=== PATIENT | male | born 1945 | race Caucasian/White ===

== ENCOUNTER 2017-08-28 22:09 | Emergency (ER) | payer OTHER, MEDICARE ==
[2017-08-28 23:01] LABS: #Eosinphils 0.9 thou/uL (0.0-0.7); #Monocytes 0.4 thou/uL (0.11-0.59); #Neutrophils 3.4 thou/uL (1.40-6.50); %Basophils 0.6 % (0.0-1.0); %Eosinophils 13.8 % (0.0-10.0); %Lymphocytes 28.9 % (21.0-51.0); %Monocytes 6.3 % (0.0-10.0); %Neutrophils 50.5 % (42.0-75.0); Hemoglobin 12.7 g/dL (14.0-18.0); Mean Corpuscular HGB CONC 34.4 g/dL (32.0-36.0); Mean Corpuscular Hemoglobin 30.6 pg (27.0-31.0); Mean Platelet Volume 6.2 fL (7.4-10.4); Platelet Count 205 thou/uL (130-400); RBC Distribution Width 12.8 % (11.5-14.5); Red Blood Cell (RBC) Count 4.16 mill/uL (4.70-6.10); White Blood Cell (WBC) Count 6.8 thou/uL (4.8-10.8)
[2017-08-28 23:29] LABS: CKMB 4.5 ng/mL (0-6.6); Troponin I 0.102 ng/mL (< 0.028)
[2017-08-29] MEDS ORDERED: Enoxaparin Sodium 100 MG/ML SYRINGE ONE (00:29)
[2017-08-29 02:20] LABS: Anion Gap 14 mmol/L (10-20); BUN (Urea Nitrogen) 20 mg/dL (8.4-25.7); Calc. Creatinine Clearance 0 mL/min (70-130); Carbon Dioxide 23 mmol/L (23-31); Chloride 109 mmol/L (98-107); Estimated GFR-MDRD 67; Glucose 317 mg/dL (80-115); Potassium 4.7 mmol/L (3.5-5.1); Sodium 141 mmol/L (136-145)
--- NOTE | 2017-08-29 08:59 | RAD ---
AP VIEW CHEST: 08/28/17 HISTORY: Chest pain. AP view chest obtained on 08/28/17. Comparison made to previous exam from 07/11/15. AP view chest demonstrates the lungs to be well aerated. No evidence of active intrathoracic disease seen. No evidence of effusions, pneumonia or pneumothorax seen. IMPRESSION: Unremarkable AP view chest. POS: [facility]
== END 2017-08-29 03:44 ==
LOC: ERS 22:09
DX: I21.4 Non-ST elevation (NSTEMI) myocardial infarction (principal); E11.9 Type 2 diabetes mellitus without complications; E78.5 Hyperlipidemia, unspecified; Z79.82 Long term (current) use of aspirin; Z79.899 Other long term (current) drug therapy; Z79.84 Long term (current) use of oral hypoglycemic drugs
CPT/HCPCS: 36415; 71045; 80048; 82550; 82553; 84484; 85025; 85379; 93005; 96372; J1650

== ENCOUNTER 2018-02-02 13:54 | Emergency (ER) | payer OTHER, MEDICARE ==
--- NOTE | 2018-02-02 14:50 | CT ---
CT CERVICAL SPINE NONCONTRAST: HISTORY: 72-year-old male status post acute cervical trauma. FINDINGS: There are no jumped or perched facets. There is no evidence of acute fracture. The vertebral body h eights are maintained. There is no prevertebral soft tissue swelling. IMPRESSION: No evidence of acute fracture or acute traumatic subluxation. reyna POS: [facility]
--- NOTE | 2018-02-02 15:37 | RAD ---
RIGHT SHOULDER THREE VIEWS: History: Injury. Right shoulder pain. FINDINGS/IMPRESSION: There are degenerative changes in the acromioclavicular joint. No acute fracture or dislocation is id entified. POS: OFF
--- NOTE | 2018-02-02 15:38 | CT ---
NONCONTRAST CT HEAD: Date: 02-02-18 History: Syncope. Injury to head after hitting metal bar in truck. Reported LOC. Comparison: None available. FINDINGS: There is no evidence of a hemorrhage, acute infarction, mass effect or midline shift. Ventricular sys tem is normal in size, shape, and position. There is mild cerebral volume loss. There are symmetric c alcifications in the basal ganglia bilaterally. No calvarial fracture is seen. Visualized paranasal sinuses and mastoid air cells are clear. IMPRESSION: No acute intracranial abnormalities demonstrated. POS: [facility]
== END 2018-02-02 15:22 | disposition home or self-care (01) ==
LOC: ERS 13:54
DX: S06.0X9A Concussion with loss of consciousness of unspecified duration, initial encounter (principal); I25.2 Old myocardial infarction; E11.9 Type 2 diabetes mellitus without complications; E78.5 Hyperlipidemia, unspecified; Z79.82 Long term (current) use of aspirin; Z79.84 Long term (current) use of oral hypoglycemic drugs; Z79.899 Other long term (current) drug therapy
CPT/HCPCS: 70450; 72125; 93005

== ENCOUNTER 2019-01-06 15:20 | Emergency (ER) | payer OTHER ==
[2019-01-06] MEDS ORDERED: Tranexamic Acid 1,000 MG/10 ML VIAL ONE (15:43)
== END 2019-01-06 15:50 | disposition home or self-care (01) ==
LOC: ERS 15:20
DX: K91.840 Postprocedural hemorrhage of a digestive system organ or structure following a digestive system procedure (principal); K08.89 Other specified disorders of teeth and supporting structures; Z79.899 Other long term (current) drug therapy; Z79.82 Long term (current) use of aspirin
CPT/HCPCS: 99283

== ENCOUNTER 2019-03-02 09:03 | Inpatient (IN) | payer OTHER ==
[2019-03-02] MEDS ORDERED: Furosemide 40 MG/4 ML VIAL ONE (09:11)
[2019-03-02 09:18] LABS: Analyzer IN Cardio ER; Base Excess (BEa) -5.6 mEq/L (-2.0 to +3.0); CO2 Tension 39.4 mmHg (35.0-45.0); Calcium, Ionized 1.19 mmol/L (1.12-1.30); Carboxyhemoglobin (COHb) 0.1 gm% (0.0-3.0); Hemoglobin (Hb) 12.9 g/dL (14.0-18.0); O2 Tension (PaO2) 94.2 mmHg (> 70.0); Potassium - ABG Lab 4.53 mmol/L (3.70-5.30); Puncture Site RRA; pH, Arterial 7.32 (7.35-7.45)
--- NOTE | 2019-03-02 09:20 | RAD ---
RADIOGRAPH CHEST 1 VIEW: DATE: 03/02/2019 TIME: 9:13 AM HISTORY: 74-year-old male with dyspnea COMPARISON: 08/28/2017 FINDINGS: No cardiomegaly or pneumothorax. New finding of diffuse mild interstitial prominence, plus new region of slight confluence at right mi dlung zone and at right medial base. New finding of minimal blunting of bilateral lateral costophrenic angles which could represent small pleural effusions. IMPRESSION: New mild interstitial densities which could represent noncardiogenic pulmonary interstitial edema, an d questionable new small pleural effusions.
[2019-03-02 09:35] LABS: #Eosinphils 0.4 thou/uL (0.0-0.7); #Monocytes 0.2 thou/uL (0.11-0.59); #Neutrophils 9.7 thou/uL (1.40-6.50); %Basophils 0.1 % (0.0-1.0); %Eosinophils 3.2 % (0.0-10.0); %Lymphocytes 8.6 % (21.0-51.0); %Monocytes 1.6 % (0.0-10.0); %Neutrophils 86.6 % (42.0-75.0); Hemoglobin 12.5 g/dL (14.0-18.0); Mean Corpuscular Volume 90.6 fL (78.0-98.0); Mean Platelet Volume 7.8 fL (7.4-10.4); Platelet Count 281 thou/uL (130-400); Red Blood Cell (RBC) Count 4.18 mill/uL (4.70-6.10); White Blood Cell (WBC) Count 11.2 thou/uL (4.8-10.8)
[2019-03-02 09:56] LABS: ALT (SGPT) 8 U/L (8-55); AST (SGOT) 17 U/L (5-34); Albumin 4.2 g/dL (3.4-4.8); Alkaline Phosphatase 105 U/L (40-110); Anion Gap 15 mmol/L (10-20); BUN (Urea Nitrogen) 24 mg/dL (8.4-25.7); Bilirubin, Total 0.5 mg/dL (0.2-1.2); CK (CPK) 53 U/L (30-200); Calc. Creatinine Clearance 0 mL/min (70-130); Carbon Dioxide 20 mmol/L (23-31); Chloride 107 mmol/L (98-107); Estimated GFR-MDRD 44; Globulin 3.5 g/dL (2.4-3.5); Glucose 228 mg/dL (83-110); Lipase 46 U/L (8-78); Protein, Total 7.7 g/dL (5.8-8.1); Sodium 137 mmol/L (136-145)
[2019-03-02 10:26] LABS: Bilirubin Negative (Negative); Blood, Urine Negative (Negative); Clarity Clear (Clear); Glucose, Urine (Dipstick) Normal (Negative); Leukocyte Negative Leu/uL (Negative); Nitrite Negative (Negative); Protein, Urine (Dipstick) Negative (Neg-Trace); Urobilinogen Normal mg/dL (Less than 2)
[2019-03-02 12:46] LABS: Troponin I 0.014 ng/mL (< 0.028)
[2019-03-02] MEDS ORDERED: Sodium Chloride 0.65% Nasal 44 ML BOT EA NARE PRN (13:46)
[2019-03-02] MEDS ORDERED: Loratadine 10 MG TAB PO PRN (13:46)
[2019-03-02] MEDS ORDERED: Cepastat Lozenges 1 LOZ PO PRN (13:46)
[2019-03-02] MEDS ORDERED: Dextrose 50% Abboject 50 ML SYRINGE SLOW IVP PRN (13:46)
[2019-03-02] MEDS ORDERED: hydrALAZINE 20 MG/ML VIAL SLOW IVP PRN (13:46)
[2019-03-02] MEDS ORDERED: Zolpidem Tartrate 5 MG TAB PO PRN (13:46)
[2019-03-02] MEDS ORDERED: Dextrose 5% in Water 1,000 ML IV PRN (13:46)
[2019-03-02] MEDS ORDERED: Loperamide HCl 2 MG CAP PO PRN (13:46)
[2019-03-02] MEDS ORDERED: Acetaminophen 325 MG TAB PO PRN (13:46)
[2019-03-02] MEDS ORDERED: Diabetic Tussin 200 MG/10 ML UDCUP PO PRN (13:46)
[2019-03-02] MEDS ORDERED: Artificial Tears 18 DROP/0.9 ML EA EYE PRN (13:46)
[2019-03-02] MEDS ORDERED: Bisacodyl 10 MG SUPP PR PRN (13:46)
[2019-03-02] MEDS ORDERED: Ondansetron PF 4 MG/2 ML Vial IVP PRN (13:46)
[2019-03-02] MEDS ORDERED: Ondansetron ODT 4 MG TAB PO PRN (13:46)
[2019-03-02] MEDS ORDERED: HYDROcodone/Acetaminophen 5/325 mg Tablet PO PRN (13:46)
[2019-03-02] MEDS ORDERED: Calcium Carbonate 500 MG ChewTAB PO PRN (13:46)
[2019-03-02 13:59] VITALS: BMI 32.0
--- NOTE | 2019-03-02 14:15 | HP ---
PRIMARY CARE PHYSICIAN: [facility]. REASON FOR ADMISSION: Acute shortness of breath. HISTORY OF PRESENT ILLNESS: A 74-year-old male who has underlying history of hypertension, diabetes type 2, dyslipidemia, coronary artery disease as well as morbid obesity, and possible COPD/asthma, who had cardiac catheterization performed at [facility] by Dr. Coleman. The patient has history of contrast allergy and he was prepared before cardiac catheterization for contrast allergy. The patient had cardiac catheterization and he required two stents placement. Procedure was done through a right groin approach. After cardiac catheterization, in recovery, patient was having difficulty breathing. The patient was given treatment with Benadryl, steroid and epinephrine, but his condition did not improve and that is why paramedics was called and the patient was kept on BiPAP and the patient was brought to emergency room for evaluation. After BiPAP treatment, the patient's condition significantly improved and in the emergency room, we tried to discontinue BiPAP and the patient was continued to maintain saturation and he was feeling much better. In the emergency room, chest x-ray showed bilateral interstitial infiltration, suspected for noncardiogenic pulmonary edema. His BNP is elevated. The patient also reports that he has underlying valve problem and before they consider any surgical intervention on valve, he will require cardiac catheterization and that is why he had procedure scheduled today. REVIEW OF SYSTEMS: CONSTITUTIONAL: Negative for weight loss or gain, ability to conduct usual activities. SKIN: Negative for rash, itching. EYES: Negative for double vision, pain. ENT/MOUTH: Negative for nose bleeding, neck stiffness, pain, tenderness. CARDIOVASCULAR: Negative for palpitations, dyspnea on exertion, orthopnea. RESPIRATORY: Negative for shortness of breath, wheezing, cough, hemoptysis, fever or night sweats. GASTROINTESTINAL: Negative for poor appetite, abdominal pain, heartburn, nausea, vomiting, constipation, or diarrhea. GENITOURINARY: Negative for urgency, frequency, dysuria, nocturia. MUSCULOSKELETAL: Negative for pain, swelling. NEUROLOGIC/PSYCHIATRIC: Negative for anxiety, depression. ALLERGY/IMMUNOLOGIC: Negative for skin rash, bleeding tendency. Please see my HPI for pertinent positives and negatives. All other review of systems reviewed and negative except as mentioned in HPI. EMERGENCY ROOM COURSE: The patient has received Lasix 40 mg IV one time dose. ALLERGY: Iodine contrast medium. CURRENT HOME MEDICATION: 1. Aspirin 81 mg daily. 2. Lipitor 80 mg p.o. at bedtime. 3. Metoprolol 50 mg twice daily. 4. Metformin 1000 mg twice daily. 5. Victoza 2-Michael subcu weekly. 6. NovoLog insulin as per sliding scale. 7. Lantus insulin as per variable dose. 8. Albuterol nebulization q.6 hourly. PAST MEDICAL HISTORY: Diabetes type 2, hypertension, aortic valve problem, coronary artery disease with history of total five stents, paroxysmal atrial fibrillation, hypertension, dyslipidemia, COPD/asthma, obstructive sleep apnea, morbid obesity. PAST SURGICAL HISTORY: Cardiac catheterization with several stent placement, bilateral eye surgery. PAST PSYCHIATRIC HISTORY: Reviewed and negative. SOCIAL HISTORY: The patient lives at home with family. No history of tobacco, alcohol, or illicit drug abuse. FAMILY HISTORY: No strong family history of premature coronary artery disease, stroke, or cancer. PHYSICAL EXAMINATION: VITAL SIGNS: On arrival, blood pressure 103/69, pulse 86, respiratory rate 23, temperature 98.7, saturation 99% on BiPAP, and after BiPAP off the patient was maintaining 98% saturation on 2 L nasal cannula. GENERAL: The patient is currently alert, awake, in no obvious acute distress. HEENT: Head; normocephalic, atraumatic. Eyes; pupils round, reactive to light. Extraocular muscle intact. ENT, oropharynx within normal limits. Moist mucous membranes. No oral lesion. No pharyngeal erythema. No exudate. NECK: Supple. Mild elevated JVD noted. No thyromegaly. No carotid bruit. LUNGS: Bilateral basal rales noted, few end-expiratory wheezing heard. No accessory muscles of respiration in use. CARDIAC: S1, S2 regular. Systolic murmur noted at aortic area. No gallop. No rub. ABDOMEN: Morbid obesity limiting examination. No peritoneal sign. Nontender, nondistended. EXTREMITIES: Bilateral lower extremity pitting edema noted. NEUROLOGIC: Nonfocal examination. LABORATORY DATA: Significant labs: EKG showing normal sinus rhythm, nonspecific ST-T changes. Chest x-ray showing bilateral interstitial infiltration consistent with noncardiogenic pulmonary edema. CBC: WBC 11.2, hemoglobin 12.5, platelet 281. ABGs: PH 7.32, CO2 of 39.4, PO2 of 94.2, bicarb 20.0. BMP: Sodium 137, potassium 5.0, chloride 107, carbon dioxide 20, BUN 24, creatinine 1.55, glucose 228, calcium 9.0. LFTs: AST 17, ALT 8, alkaline phosphatase 105, albumin 4.2, CK 53. Troponin I negative x2. BNP 240.8. Lipase 46. Urinalysis normal. ASSESSMENT AND PLAN: 1. Acute respiratory failure with hypoxia. 2. Acute bilateral interstitial edema suspected for noncardiogenic pulmonary edema versus acute congestive heart failure, likely systolic. 3. Acute on chronic systolic congestive heart failure exacerbation. 4. Coronary artery disease with a history of several stents and status post cardiac catheterization with two stent placement. 5. Hypertension, but currently low blood pressure. 6. Dyslipidemia. 7. Morbid obesity with possible sleep apnea. 8. Chronic obstructive pulmonary disease/asthma. 9. Diabetes type 2. 10. Chronic kidney disease, stage 3. PLAN: 1. Admission to telemetry floor (the patient has improvement with BiPAP in the emergency room, and subsequently, the patient was stabilized and plan was changed to admission to telemetry rather than IMCU). 2. Continue Lasix 40 mg IV b.i.d. 3. Cardiology consultation. 4. Oxygen to keep saturation above 92%. 5. DuoNeb q.6 hourly and p.r.n. basis. 6. Selected home medication will be reconciled including diabetes medication and diabetes hyperglycemia protocol. 7. Echocardiography will be obtained for assessing EF and other structural abnormality. 8. We will repeat labs tomorrow. 9. Deep venous thrombosis prophylaxis, Lovenox 40 mg subcu daily. 10. GI prophylaxis, Pepcid 20 mg p.o. b.i.d. CODE STATUS: The patient is full code. DISPOSITION PLAN: Based on clinical course, we are expecting the patient's stay in hospital more than 2 midnights. Plan of care discussed with the patient in detail. Job ID: [id number]
[2019-03-02] MEDS: Heparin 5,000 UNITS/ML VIAL SC SCH ×2 (14:23→21:10)
[2019-03-02] MEDS: Furosemide 40 MG/4 ML VIAL SLOW IVP SCH (15:32)
[2019-03-02 16:11] LABS: Troponin I 0.028 ng/mL (< 0.028)
[2019-03-02] MEDS: HumaLOG 300 UNITS/3 ML VIAL SC PRN ×2 (17:49→21:11)
--- NOTE | 2019-03-02 18:52 | CON ---
DATE OF CONSULTATION: 03/02/2019 INDICATION FOR CONSULTATION: A 74-year-old gentleman, who underwent cardiac catheterization this morning and after the procedure, developed what appeared to be acute congestive heart failure with decreasing O2 saturations and difficulty breathing. After IV Lasix and nonrebreathing mask, he still continued to have shortness of breath and O2 saturations were in the 80s. He was then transferred to [facility] for further evaluation. The cardiac catheterization was performed at the [facility]. He does have a history of a coronary artery disease. He underwent stent placement by me in the left anterior descending approximately 20 years ago. He then subsequently after that several years later underwent repeat stent placement with one or two stents to the LAD also. He did not have stent placement today. These were all old stents and they still remain patent at the cardiac catheterization today. The results of the cardiac catheterization today indicated that the stents were patent. The distal left anterior descending artery was about 50% stenosed, but it was a small vessel, but almost approached the apex of the left ventricle. The diagonal branch had plaque formation, was not flow limiting. The left circumflex for first obtuse marginal branch is less than 1 mm in diameter. The second obtuse marginal branch had a 70% proximal stenosis, but also did not appear to be limited in his flow. The right coronary artery was a large dominant vessel, which had some plaque formation, but the posterior descending artery was 75% stenosed. The posterior branch was unaffected and had good flow. His left ventricular systolic function was estimated at 35% to 40%. The left ventricle appeared to be dilated. He also had a right heart catheterization, which showed calculated aortic valve area of 1.17 cm2, but he is somewhat better now after being seen here. He has been on oxygen. He remains on oxygen and he has had significant urinary output. He feels better, but he still has shortness of breath. He says that his shortness of breath has been ongoing for at least five years and when he tries to walk, he is unable to do so. He says his quality of life is horrific. He says he is able to get up in the morning and limit the eat and he goes and sits in his chair all day long in the recliner until it is the time to go to bed, sometimes he sleeps in the chair. He is actually unable to do anything around the house otherwise due to his severe shortness of breath. He has been seen at the [facility] and was felt that probably some of his symptoms were due to the aortic valve stenosis. In retrospect and putting the whole picture together, it appears that he most likely has underlying lung disease as well as his aortic valve stenosis, which is not critical, but in view of the fact that his left ventricular systolic function is compromised and he may also have diastolic dysfunction at the combination of these comorbidities has caused these severe compromise in his overall health and also had increasing shortness of breath and dyspnea on exertion. He did also complain of some bilateral arm pain when he tries to walk or when he tries to do anything and also states now he is starting to get leg pain. I explained to him that the leg pain is noncardiac. He does have pulses in his feet and most likely this is some type of neurological problem. The upper extremity discomfort also may be some to neurologic as the coronary artery disease does not warrant this kind of severe pain based on the amount of coronary artery disease that he has. At this time, I have discussed this case with the surgeon with Dr. Bonner and it may be that the best option for the patient may be to undergo possible TAVR as he most likely is a poor candidate for any type of open heart surgery for valve replacement due to his underlying problems. I will also ask for the shoes hand sewer to visit with this patient to see if we can find any other help for the patient. He is on nebulizers. He has had multiple nebulizers in the past, but says that he has not had significant improvement in his overall pulmonary status. PAST MEDICAL HISTORY: He has a history of coronary artery disease with the angioplasty and stent placement many years ago to the left anterior descending artery. He has type 2 diabetes and hyperlipidemia. He does have a diagnosis of COPD. SOCIAL HISTORY: He lives alone. He has no significant alcohol use. He has not smoked in the past. FAMILY HISTORY: Mother had cancer. Father had cancer. He has heart disease in his maternal grandmother and also his maternal grandfather had heart disease and stroke. ALLERGIES: HE SAYS HE IS ALLERGIC TO IODINE AND THIS MORNING, HE DID RECEIVE MEDICATIONS PRIOR TO THE CARDIAC CATHETERIZATION, BUT ONLY JUST SMALL WITHIN HALF AN HOUR BEFORE PROCEEDING WITH THE CARDIAC CATHETERIZATION, HE RECEIVED STEROIDS WELL H2 BLOCKERS AND ALSO BENADRYL. MEDICATIONS: Prior to admission included; 1. Albuterol sulfate aerosol treatments. 2. Albuterol with ipratropium. 3. 81 mg of aspirin. 4. Atorvastatin 80 mg a day. 5. He also was taking ophthalmic drops. 6. He was taking vitamin B12. 7. Diltiazem ER 180 mg daily. 8. Lantus insulin 100 units/mL as directed. 9. He was on NovoLog and FlexPen, also has directed Victoza 18 mg/3 mL injections. 10. Metformin 500 mg two tablets with meal. 11. He is taking metoprolol 50 mg twice a day. 12. Multivitamins. 13. He was taken also Olodaterol/hydrochloride 2.5 mcg for an ACT aerosol solution two puffs once a day. 14. He was also taking Xarelto 20 mg once a day. 15. He was using also a glucose test strips himself. He did have an echocardiogram at the [facility] and was reviewed by Dr. Bonner and felt that the ejection fraction was 30% to 40% with aortic valve calcifications and also had 1/3 diastolic dysfunctions at that time. By cardiac catheterization today, I would agree with an ejection fraction of about 40%. The aortic valve had mild calcifications and gradient across the valve. The peak gradient was about 30 to 40 mmHg and calculated aortic valve area is 1.17 cm2. REVIEW OF SYSTEMS: HEENT: There are no new complaints in the review of systems. PULMONARY: He complains of shortness of breath as noted above in the history of present illness. CARDIOVASCULAR: He denied any significant chest pain. He does have the shortness of breath and complained of bilateral arm pain. He denies any significant palpitations. GI: He denies any nausea, vomiting, or diarrhea. : No dysuria or hematuria. MUSCULOSKELETAL: He complains of the arm pain and also a lower extremity pain. This does not necessarily associated with ambulation, since he is unable to ambulate. He has difficulty walking only because he is unable to breathe. NEUROLOGIC: No history of seizures or syncope. SKIN: He has no rashes or any new complaints in the skin. The skin was warm and dry. PHYSICAL EXAMINATION: GENERAL: Reveals an elderly gentleman, who is in no acute distress, but is still actually continued to be short of breath. VITAL SIGNS: His blood pressure is 107/63, temperature is afebrile, respiratory rate is about 20, heart rate is 84 and is regular at this time, and O2 saturation is 94% on 2 L. HEENT: Reveals head to be normocephalic and atraumatic. Carotid pulses are present. I did not hear any significant bruits. CHEST: He has minimal rales in the right base, otherwise was clear to auscultation. No wheezing was noted or rhonchi. CARDIOVASCULAR: Reveals a regular rate and rhythm at this time. There was no gross murmurs noted. He has a very soft systolic murmur of the aortic area, otherwise unremarkable. ABDOMEN: Soft and nontender. Positive bowel sounds are present. No palpable masses or tenderness noted. MUSCULOSKELETAL: Lower extremities showed mild ankle edema. There was no clubbing or cyanosis noted. Pedal pulses are present. NEUROLOGIC: The patient appears to be fully intact. LABORATORY DATA: Shows a WBC of 11.2, hemoglobin 12.5, hematocrit was 37.8, and a platelet count of 281,000. His sodium was 137, potassium was 5, bicarb was 20, BUN was 24, creatinine 1.55, and blood sugar was 281. His BNP was 248 and troponin I is negative. IMPRESSION AND PLAN: 1. Congestive heart failure exacerbation, which is systolic and diastolic in nature after being given IV contrast this morning for a cardiac catheterization. 2. Probable significant underlying chronic obstructive pulmonary disease. We will ask a shoes hand sewer for their opinion on this gentleman. 3. Aortic valve stenosis with associated severe decrease in moderate to severe decrease in left ventricular systolic function. This may be compromising in his overall cardiac function and he may be a candidate for a transcatheter aortic valve replacement, which will improve his cardiac output perhaps since he does have at least moderate to severe aortic valve stenosis. 4. History of coronary artery disease. He does continue to have disease; however, this appears to be relatively stable. His stents that were previously placed; however, still remained patent. He does have some 50% stenosis in the distal left anterior descending artery distal to the stents. However, the distal left anterior descending, which approaches the apex of left ventricle is small, probably less than 1 to 1.5 mm in diameter. He would not be a very good candidate for bypass or intervention. He also has some moderate to severe stenosis in the second obtuse marginal branch of left circumflex, which is a relatively good sized vessel; however, would not be advisable to undergo angioplasty or stent placement since this is way up to the ostium and does not appear to be flow limiting and also the posterior descending artery and the right coronary artery also had a 50% to 70% stenosis, but this also has good flow. It is a short vessel. Would not advise angioplasty or stent placement at this time. We will continue to diurese the patient and we will ask for a Pulmonology consult. Once he becomes more stable, we will consider transferring the patient probably for a transcatheter aortic valve replacement, if this is a reasonable option for the patient. Job ID: [id number]
[2019-03-02] MEDS: Famotidine 20 MG TAB PO SCH (21:10)
[2019-03-03 04:58] LABS: #Lymphocytes 0.6 thou/uL (1.20-3.40); #Monocytes 0.3 thou/uL (0.11-0.59); #Neutrophils 7.6 thou/uL (1.40-6.50); %Basophils 0.1 % (0.0-1.0); %Eosinophils 0.1 % (0.0-10.0); %Lymphocytes 7.4 % (21.0-51.0); %Monocytes 3.1 % (0.0-10.0); %Neutrophils 89.3 % (42.0-75.0); Hemoglobin 10.8 g/dL (14.0-18.0); Mean Corpuscular HGB CONC 33.2 g/dL (32.0-36.0); Mean Corpuscular Hemoglobin 29.7 pg (27.0-31.0); Mean Corpuscular Volume 89.5 fL (78.0-98.0); Mean Platelet Volume 7.1 fL (7.4-10.4); Platelet Count 233 thou/uL (130-400); RBC Distribution Width 12.7 % (11.5-14.5); Red Blood Cell (RBC) Count 3.64 mill/uL (4.70-6.10); White Blood Cell (WBC) Count 8.6 thou/uL (4.8-10.8)
[2019-03-03 05:17] LABS: ALT (SGPT) 7 U/L (8-55); AST (SGOT) 8 U/L (5-34); Albumin 3.6 g/dL (3.4-4.8); Alkaline Phosphatase 82 U/L (40-110); Anion Gap 13 mmol/L (10-20); BUN (Urea Nitrogen) 30 mg/dL (8.4-25.7); Bilirubin, Total 0.6 mg/dL (0.2-1.2); Calc. Creatinine Clearance 63 mL/min (70-130); Calcium 8.5 mg/dL (7.8-10.44); Carbon Dioxide 22 mmol/L (23-31); Chloride 104 mmol/L (98-107); Estimated GFR-MDRD 43; Globulin 2.6 g/dL (2.4-3.5); Glucose 231 mg/dL (83-110); Magnesium 1.6 mg/dL (1.6-2.6); Potassium 4.4 mmol/L (3.5-5.1); Protein, Total 6.2 g/dL (5.8-8.1); Sodium 135 mmol/L (136-145); Uric Acid 9.2 mg/dL (3.5-7.2)
[2019-03-03] MEDS: Furosemide 40 MG/4 ML VIAL SLOW IVP SCH ×2 (06:31→14:27)
[2019-03-03] MEDS: Cyanocobalamin (Vitamin B-12) 1,000 MCG TAB PO SCH (08:35)
[2019-03-03] MEDS: Clopidogrel Bisulfate 75 MG TAB PO SCH (08:35)
[2019-03-03] MEDS: Famotidine 20 MG TAB PO SCH ×2 (08:36→20:47)
[2019-03-03] MEDS: Aspirin 81 mg Enteric Coated Tablet PO SCH (08:36)
[2019-03-03] MEDS: FLUoxetine HCl 20 MG CAP PO SCH (08:36)
[2019-03-03] MEDS: Insulin Glargine 20 UNITS in Pre-Filled Syringe 1 EACH SC SCH (08:36)
[2019-03-03] MEDS: Rivaroxaban 10 MG TAB PO SCH (08:36)
[2019-03-03] MEDS: Artificial Tears 18 DROP/0.9 ML EA EYE SCH ×4 (08:37→20:47)
[2019-03-03] MEDS ORDERED: REFRESH PLUS (Carboxymethylcellulose 0.5%) Opth Drops EA EYE SCH (09:00)
[2019-03-03] MEDS ORDERED: Aspirin 325 MG TAB PO SCH (09:00)
--- NOTE | 2019-03-03 09:16 | PDOC.HOSPP ---
- Subjective Encounter Date: 03/03/19 Encounter Time: 07:10 Subjective: Patient seen and examined. No new complaints. No overnight events - Objective Vital Signs & Weight: Vital Signs (12 hours) Temp Pulse Resp BP Pulse Ox 03/03/19 07:26 95 03/03/19 07:25 97.3 F L 88 18 99/55 L 95 03/03/19 04:30 98.9 F 89 16 89/51 L 94 L Weight Weight 233 lb 8 oz I&O: 03/02/19 03/03/19 03/04/19 06:59 06:59 06:59 Intake Total 285 Output Total 1900 Balance -1615 Result Diagrams: 03/03/19 04:27 03/03/19 04:27 Additional Labs: Accuchecks 03/03/19 03/02/19 03/02/19 06:24 20:00 16:29 POC Glucose 237 H 304 H 281 H Radiology Reviewed by me: Yes EKG Reviewed by me: Yes Hospitalist ROS - Review of Systems ENT: denies: ear pain, ear discharge, nose pain, nose discharge, nose congestion , mouth pain, mouth swelling, throat pain, throat swelling, other Respiratory: denies: cough, dry, shortness of breath, hemoptysis, SOB with excertion, pleuritic pain, sputum, wheezing, other Cardiovascular: denies: chest pain, palpitations, orthopnea, paroxysmal noc. dyspnea, edema, light headedness, other Gastrointestinal: denies: nausea, vomiting, abdominal pain, diarrhea, constipation, melena, hematochezia, other Genitourinary: denies: dysuria, frequency, incontinence, hematuria, retention, other Musculoskeletal: denies: neck pain, shoulder pain, arm pain, back pain, hand pain, leg pain, foot pain, other - Medication Medications: Active Medications Generic Name Dose Route Start Last Admin Trade Name Freq PRN Reason Stop Dose Admin Artificial Tears 1 drop 03/03/19 09:00 03/03/19 08:37 Tears Naturale EA EYE 1 drop QID SIN Administration Aspirin 81 mg 03/03/19 09:00 03/03/19 08:36 Ecotrin PO 81 mg DAILY SIN Administration Clopidogrel Bisulfate 75 mg 03/03/19 09:00 03/03/19 08:35 Plavix PO 75 mg DAILY SIN Administration Cyanocobalamin 1,000 mcg 03/03/19 09:00 03/03/19 08:35 Vitamin B-12 PO 1,000 mcg DAILY SIN Administration Diltiazem HCl 180 mg 03/03/19 09:00 03/03/19 08:36 Cardizem Cd PO 180 mg DAILY SIN Administration Famotidine 20 mg 03/02/19 21:00 03/03/19 08:36 Pepcid PO 20 mg BID SIN Administration Fluoxetine HCl 20 mg 03/03/19 09:00 03/03/19 08:36 Prozac PO 20 mg DAILY SIN Administration Furosemide 40 mg 03/02/19 14:00 03/03/19 06:31 Lasix SLOW IVP 40 mg 0600,1400 SIN Administration Insulin Glargine 20 units/ 0.2 mls @ 0 mls/hr 03/03/19 07:30 03/03/19 08:36 Miscellaneous Medication SC 0.2 mls DAILY-AC SIN Administration As Directed Insulin Human Lispro 0 units 03/02/19 13:46 03/02/19 17:49 Humalog SC 6 unit .MODERATE SLIDING SC PRN Administration Moderate Correctional Scale Insulin Human Lispro 0 units 03/02/19 13:46 03/02/19 21:11 Humalog SC 4 unit .BEDTIME SLIDING SC PRN Administration Bedtime Correctional Scale Metoprolol Succinate 50 mg 03/03/19 09:00 03/03/19 08:36 Toprol Xl PO 50 mg BID SIN Administration Rivaroxaban 20 mg 03/03/19 09:00 03/03/19 08:36 Xarelto PO 20 mg DAILY SIN Administration - Exam General Appearance: NAD, awake alert Eye: PERRL, anicteric sclera ENT: normocephalic atraumatic, no oropharyngeal lesions Neck: supple, symmetric, no JVD, no thyromegaly Heart: RRR, no murmur, no gallops, no rubs Respiratory: CTAB, no wheezes, no ronchi Respiratory - other findings: basal rales+ Gastrointestinal: soft, non-tender, non-distended, normal bowel sounds Extremities: no cyanosis, no clubbing, 1+ LE edema Skin: normal turgor, no lesions Neurological: no focal deficits Musculoskeletal: normal tone, normal strength Psychiatric: normal affect, normal behavior Hosp A/P (1) Acute respiratory failure with hypoxia Code(s): J96.01 - ACUTE RESPIRATORY FAILURE WITH HYPOXIA Status: Acute (2) Acute on chronic systolic ACC/AHA stage C congestive heart failure Code(s): I50.23 - ACUTE ON CHRONIC SYSTOLIC (CONGESTIVE) HEART FAILURE Status : Acute (3) Hypertension Code(s): I10 - ESSENTIAL (PRIMARY) HYPERTENSION Status: Chronic (4) Dyslipidemia Code(s): E78.5 - HYPERLIPIDEMIA, UNSPECIFIED Status: Chronic (5) Diabetes type 2, controlled Code(s): E11.9 - TYPE 2 DIABETES MELLITUS WITHOUT COMPLICATIONS Status: Chronic (6) CKD (chronic kidney disease) stage 3, GFR 30-59 ml/min Code(s): N18.3 - CHRONIC KIDNEY DISEASE, STAGE 3 (MODERATE) Status: Chronic (7) Obesity (BMI 30.0-34.9) Code(s): E66.9 - OBESITY, UNSPECIFIED Status: Chronic (8) CAD (coronary artery disease) Code(s): I25.10 - ATHSCL HEART DISEASE OF [place] CORONARY ARTERY W/O ANG PCTRS Status: Chronic (9) Anemia, normocytic normochromic Code(s): D64.9 - ANEMIA, UNSPECIFIED Status: Chronic (10) COPD (chronic obstructive pulmonary disease) Status: Chronic - Plan old records reviewed/req 03/03/19 continue IV lasix cardiology and CV surgery following Echo pending medication reviewed, continue to provide symptomatic care and supportive care
--- NOTE | 2019-03-03 11:12 | CON ---
DATE OF CONSULTATION: HISTORY OF PRESENT ILLNESS: Colby Price is a pleasant 74-year-old gentleman, who seeks care with the [facility]. In fact, he goes routinely for workup. He states that for the last several years, he has had progressive shortness of breath with minimal exertion, in fact, walking even sometimes 30 yards makes him have chest pain and shortness of breath. He also hears a lot of gurgling noises. His scuba diver at the [facility] told him he had asthma, he had COPD, then he was told that it is all cardiac in origin and send him to a solutions manager and they felt it was all pulmonary. Therefore, no one has actually told him what his problem was. He is essentially a nonsmoker and he smoked somewhat little at one time. 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 He does wheeze from time to time, but he has significant limitations to activity with some occasional wheeze. He does have a diagnosis of sleep apnea and wears a CPAP machine every night. PAST MEDICAL HISTORY: Coronary artery disease, status post multiple stents; hypertension; hyperlipidemia; sleep apnea; and diabetes. PAST SURGICAL HISTORY: Previous catheterization, previous stent, recent repeat catheterization. Shortly thereafter, he became acutely short of breath but had a reaction to the dye, unclear what transpired. His chest x-ray showed mild cephalization. HOME MEDICATIONS: Include; 1. Prozac 20. 2. Xarelto 20. 3. Toprol-XL 50. 4. Metformin 1000 b.i.d. 5. Insulin Lantus. 6. Cardizem 240. 7. Symbicort. 8. Albuterol inhaler. 9. Nebulizer machine. 10. CPAP machine. ALLERGIES: IODINE. PHYSICAL EXAMINATION: GENERAL: On examination, he is in no acute distress this morning. VITAL SIGNS: Temperature 97, pulse 80, respirations 18, saturations 99% on 2 L, and blood pressure 116/60. CHEST: Occasional inspiratory wheezing. CARDIAC: Normal S1 and S2. No gallops. ABDOMEN: No masses. LABORATORY DATA: His creatinine is 1.6, glucose 237. White count 8000, H and H of 10 and 32, and platelet count is normal. ASSESSMENT: 1. Coronary artery disease. 2. Aortic stenosis. 3. Asthmatic bronchitis. 4. Sleep apnea. 5. Diabetes. 6. Azotemia. PLAN: Pulmonary-santana, he needs a full pulmonary function test when he is stable. Dr. Coleman is considering intervention for his aortic valve stenosis. Pulmonary-santana, I will restart him on his home medicine, nebulizer, and Dulera. He can follow up in the office at any time. Meantime, he is to stay on his CPAP from home. This is a consultation note, 70 minutes, 50% direct patient care. Job ID: [id number]
[2019-03-03] MEDS: HumaLOG 300 UNITS/3 ML VIAL SC PRN ×2 (13:26→17:58)
[2019-03-03] MEDS: Mometasone/Formoterol 120 PUFF INHALER INH SCH (18:50)
--- NOTE | 2019-03-03 19:35 | PDOC.CPN ---
- Subjective Date: 03/03/19 Time: 19:38 Interval history: The pt seen and examined. No overnight events. No cardiac complaints, except SHEA with mild exertion - Objective Allergies/Adverse Reactions: Allergies Allergy/AdvReac Type Severity Reaction Status Date / Time IODIDES Allergy Short of Uncoded 03/02/19 13:58 Breath Visit Medications: Current Medications Acetaminophen (Tylenol) 650 mg PO Q4H PRN PRN Reason: Headache/Fever/Mild Pain (1-3) Hydrocodone Bitart/Acetaminophen ([place] 5/325) 1 tab PO Q4H PRN PRN Reason: Moderate Pain (4-6) Albuterol/Ipratropium (Duoneb) 3 ml NEB [id number] [facility] Last Admin: 03/03/19 18:48 Dose: 3 ml Artificial Tears (Tears Naturale) 2 drop EA EYE PRN PRN PRN Reason: Dry Eyes Artificial Tears (Tears Naturale) 1 drop EA EYE QID [facility] Last Admin: 03/03/19 16:50 Dose: 1 drop Aspirin (Ecotrin) 81 mg PO DAILY [facility] Last Admin: 03/03/19 08:36 Dose: 81 mg Atorvastatin Calcium (Lipitor) 80 mg PO HS [facility] Bisacodyl (Dulcolax) 10 mg [place] DAILYPRN PRN PRN Reason: Constipation Calcium Carbonate (Tums) 1,000 mg PO Q4H PRN PRN Reason: Heartburn or Indigestion Carvedilol (Coreg) 6.25 mg PO BID-[facility] Carvedilol (Coreg) 6.25 mg PO 2100 [facility] Stop: 03/03/19 23:00 Clopidogrel Bisulfate (Plavix) 75 mg PO DAILY [facility] Last Admin: 03/03/19 08:35 Dose: 75 mg Cyanocobalamin (Vitamin B-12) 1,000 mcg PO DAILY [facility] Last Admin: 03/03/19 08:35 Dose: 1,000 mcg Dextrose/Water (Dextrose 50%) 25 gm SLOW IVP PRN PRN PRN Reason: Hypoglycemia Diltiazem HCl (Cardizem Cd) 180 mg PO DAILY [facility] Last Admin: 03/03/19 08:36 Dose: 180 mg Famotidine (Pepcid) 20 mg PO BID [facility] Last Admin: 03/03/19 08:36 Dose: 20 mg Fluoxetine HCl (Prozac) 20 mg PO DAILY [facility] Last Admin: 03/03/19 08:36 Dose: 20 mg Furosemide (Lasix) 40 mg SLOW IVP 0600,1400 [facility] Last Admin: 03/03/19 14:27 Dose: Not Given Glucagon (Glucagon) 1 mg IM PRN PRN PRN Reason: Hypoglycemia Guaifenesin (Robitussin Sf) 200 mg PO Q4H PRN PRN Reason: Cough Hydralazine HCl (Apresoline) 10 mg SLOW IVP Q4H PRN PRN Reason: SBP > 180 and HR < 70 Dextrose/Water (D5w) 1,000 mls @ 0 mls/hr IV .Q0M PRN PRN Reason: Hypoglycemia Insulin Glargine 15 units/ (Miscellaneous Medication) 0.15 mls @ 0 mls/hr SC [facility] Insulin Glargine 20 units/ (Miscellaneous Medication) 0.2 mls @ 0 mls/hr [place] DAILY-AC [facility] Last Admin: 03/03/19 08:36 Dose: 0.2 mls Insulin Human Lispro (Humalog) 0 units [place] .BEDTIME SLIDING SC PRN PRN Reason: Bedtime Correctional Scale Last Admin: 03/02/19 21:11 Dose: 4 unit Insulin Human Lispro (Humalog) 0 units SC .AGGRESSIVE SLIDING PRN; Protocol PRN Reason: AGGRESSIVE SLIDING SCALE Loperamide HCl (Imodium) 2 mg PO PRN PRN PRN Reason: Diarrhea/Loose Stools Loratadine (Claritin) 10 mg PO DAILYPRN PRN PRN Reason: Sinus Symptoms Mometasone Furoate/Formoterol Fumar (Dulera 200 Mcg/5 Mcg Inhaler) 2 puff INH BID-RT [facility] Last Admin: 03/03/19 18:50 Dose: 2 puff Ondansetron HCl (Zofran Odt) 4 mg PO Q6H PRN PRN Reason: Nausea/Vomiting Ondansetron HCl (Zofran) 4 mg IVP Q6H PRN PRN Reason: Nausea/Vomiting Rivaroxaban (Xarelto) 20 mg PO DAILY [facility] Last Admin: 03/03/19 08:36 Dose: 20 mg Senna/Docusate Sodium (Senokot S) 2 tab PO BID PRN PRN Reason: Constipation Sodium Chloride ([place] Nasal [place] 0.65%) 0 ml EA NARE QIDPRN PRN PRN Reason: Nasal Congestion Throat Lozenges (Cepastat Lozenges) 1 susi PO Q2H PRN PRN Reason: Sore Throat Zolpidem Tartrate (Ambien) 5 mg PO HSPRN PRN PRN Reason: Insomnia Vital Signs & Weight: Vital Signs Temp Pulse Resp BP Pulse Ox 03/03/19 18:50 86 16 03/03/19 18:48 83 16 96 03/03/19 15:50 97.8 F 80 18 95/51 L 95 03/03/19 14:12 95 03/03/19 14:10 81 16 03/03/19 12:10 97.5 F L 80 18 93/53 L 95 03/03/19 08:35 116/60 Weight 233 lb 8 oz - Physical Exam General: alert & oriented x3 HEENT: mucus membranes moist Neck: supple neck Cardiac: regular rate and rhythm, S1/S2 Lungs: clear to auscultation Extremities: no edema - Labs Result Diagrams: 03/03/19 04:27 03/03/19 04:27 Troponin/CKMB Troponin I 0.028 ng/mL (< 0.028) 03/02/19 15:15 - Telemetry Sinus rhythms and dysrhythmias: sinus rhythm - Assessment/Plan Assessment/Plan: 1. Acute on Chronic systolic HF - stable with NC and IV Lasix 40mg BID; on bblocker, but no REGINALDO/ARB due to CHRISSY 2. COPD/asthma exacerbation - on 2LNC; managed by hair tinter 3. Moderate - Severe - MONY 1.17cm2 4. CAD with hx of stent x 3 in past - all in the [facility]AD, on ASA, Coreg, Statin, and Plavix 5. Prox Afib - remains in SR; on Diltiazem, Coreg, and Xarelto 6. HTN - hypotensive; cont. to monitor 7. DM type 2 - managed by PCP 8. HLD - on Statin 9. Obese 10. CHRISSY MAR reviewed Pt. seen and eval. by me. I agree with the A/P by the AIRCRAFT DESIGNER. Will add that pt. may need TAVR, not a good candidate for conventional AVR.Will try to obtain PFT's. will discuss with Dr. Byrnes in [place] and see if pt. is a candidate for TAVR.
[2019-03-03] MEDS: Atorvastatin Calcium 40 MG TAB PO SCH (20:47)
[2019-03-03] MEDS ORDERED: Carvedilol 6.25 MG TAB PO SCH (21:00)
[2019-03-03] MEDS ORDERED: Insulin Glargine 15 UNITS in Pre-Filled Syringe 1 EACH SC SCH (21:00)
[2019-03-04] MEDS: Mometasone/Formoterol 120 PUFF INHALER INH SCH ×2 (06:32→19:04)
[2019-03-04] MEDS: Furosemide 40 MG/4 ML VIAL SLOW IVP SCH (06:38)
[2019-03-04] MEDS ORDERED: Sodium Chloride 0.9% 10 ML ONE (08:24)
[2019-03-04] MEDS: Insulin Glargine 20 UNITS in Pre-Filled Syringe 1 EACH SC SCH ×2 (08:28→20:26)
[2019-03-04] MEDS: Carvedilol 6.25 MG TAB PO SCH ×2 (08:33→16:37)
[2019-03-04] MEDS: Aspirin 81 mg Enteric Coated Tablet PO SCH (08:34)
[2019-03-04] MEDS: Artificial Tears 18 DROP/0.9 ML EA EYE SCH ×4 (08:34→20:25)
[2019-03-04] MEDS: Rivaroxaban 10 MG TAB PO SCH (08:35)
[2019-03-04] MEDS: FLUoxetine HCl 20 MG CAP PO SCH (08:35)
[2019-03-04] MEDS: Clopidogrel Bisulfate 75 MG TAB PO SCH (08:35)
[2019-03-04] MEDS: Famotidine 20 MG TAB PO SCH ×2 (08:35→20:24)
[2019-03-04] MEDS: Insulin Glargine 25 UNITS in Pre-Filled Syringe 1 EACH SC SCH (08:36)
[2019-03-04] MEDS: Cyanocobalamin (Vitamin B-12) 1,000 MCG TAB PO SCH (08:36)
[2019-03-04] MEDS: HumaLOG 300 UNITS/3 ML VIAL SC PRN ×2 (08:37→11:46)
--- NOTE | 2019-03-04 11:48 | PDOC.HOSPP ---
- Subjective Encounter Date: 03/04/19 Encounter Time: 07:15 Subjective: Patient seen and examined. No new complaints. No overnight events - Objective Vital Signs & Weight: Vital Signs (12 hours) Temp Pulse Resp BP BP Pulse Ox 03/04/19 08:33 103/58 L 03/04/19 06:32 83 16 03/04/19 06:23 96 03/04/19 06:21 83 16 03/04/19 03:00 98 F 85 18 91/51 L 92 L Weight Weight 233 lb 8 oz I&O: 03/03/19 03/04/19 03/05/19 06:59 06:59 06:59 Intake Total 285 300 Output Total 1900 2100 Balance -1615 -1800 Result Diagrams: 03/03/19 04:27 03/03/19 04:27 Additional Labs: Accuchecks 03/04/19 03/04/19 03/03/19 10:41 06:04 20:09 POC Glucose 292 H 208 H 225 H 03/03/19 15:50 POC Glucose 322 H Radiology Reviewed by me: Yes EKG Reviewed by me: Yes Hospitalist ROS - Review of Systems ENT: denies: ear pain, ear discharge, nose pain, nose discharge, nose congestion , mouth pain, mouth swelling, throat pain, throat swelling, other Respiratory: denies: cough, dry, shortness of breath, hemoptysis, SOB with excertion, pleuritic pain, sputum, wheezing, other Cardiovascular: denies: chest pain, palpitations, orthopnea, paroxysmal noc. dyspnea, edema, light headedness, other Gastrointestinal: denies: nausea, vomiting, abdominal pain, diarrhea, constipation, melena, hematochezia, other Genitourinary: denies: dysuria, frequency, incontinence, hematuria, retention, other Musculoskeletal: denies: neck pain, shoulder pain, arm pain, back pain, hand pain, leg pain, foot pain, other - Medication Medications: Active Medications Generic Name Dose Route Start Last Admin Trade Name Freq PRN Reason Stop Dose Admin Albuterol/Ipratropium 3 ml 03/03/19 13:00 03/04/19 06:21 Duoneb NEB 3 ml [id number] [facility] Administration Artificial Tears 1 drop 03/03/19 09:00 03/04/19 08:34 Tears Naturale EA EYE 1 drop QID [facility] Administration Aspirin 81 mg 03/03/19 09:00 03/04/19 08:34 Ecotrin PO 81 mg DAILY [facility] Administration Atorvastatin Calcium 80 mg 03/03/19 21:00 03/03/19 20:47 Lipitor PO 80 mg HS [facility] Administration Carvedilol 6.25 mg 03/04/19 08:00 03/04/19 08:33 Coreg PO 6.25 mg BID-WM [facility] Administration Clopidogrel Bisulfate 75 mg 03/03/19 09:00 03/04/19 08:35 Plavix PO 75 mg DAILY [facility] Administration Cyanocobalamin 1,000 mcg 03/03/19 09:00 03/04/19 08:36 Vitamin B-12 PO 1,000 mcg DAILY [facility] Administration Diltiazem HCl 180 mg 03/03/19 09:00 03/04/19 08:34 Cardizem Cd PO 180 mg DAILY [facility] Administration Famotidine 20 mg 03/02/19 21:00 03/04/19 08:35 Pepcid PO 20 mg BID [facility] Administration Fluoxetine HCl 20 mg 03/03/19 09:00 03/04/19 08:35 Prozac PO 20 mg DAILY [facility] Administration Furosemide 40 mg 03/02/19 14:00 03/04/19 06:38 Lasix SLOW IVP 40 mg 0600,1400 [facility] Administration Insulin Glargine 25 units/ 0.25 mls @ 0 mls/hr 03/04/19 09:00 03/04/19 08:36 Miscellaneous Medication SC 0.25 mls QAM [facility] Administration Insulin Human Lispro 0 units 03/02/19 13:46 03/02/19 21:11 Humalog SC 4 unit .BEDTIME SLIDING SC PRN Administration Bedtime Correctional Scale Insulin Human Lispro 0 units 03/03/19 19:30 03/04/19 08:37 Humalog SC 6 unit .AGGRESSIVE SLIDING PRN Administration AGGRESSIVE SLIDING SCALE Protocol Mometasone Furoate/Formoterol Fumar 2 puff 03/03/19 18:30 03/04/19 06:32 Dulera 200 Mcg/5 Mcg Inhaler INH 2 puff BID-RT [facility] Administration Rivaroxaban 20 mg 03/03/19 09:00 03/04/19 08:35 Xarelto PO 20 mg DAILY [facility] Administration - Exam General Appearance: NAD, awake alert Eye: PERRL, anicteric sclera ENT: normocephalic atraumatic, no oropharyngeal lesions Neck: supple, symmetric, no JVD, no thyromegaly Heart: RRR, no gallops, no rubs, murmur present, III/IV Respiratory: CTAB, no wheezes, no rales, no ronchi Gastrointestinal: soft, non-tender, non-distended, normal bowel sounds Extremities: no cyanosis, no clubbing, no edema Skin: normal turgor, no lesions Neurological: no focal deficits Musculoskeletal: normal tone, normal strength Psychiatric: normal affect, normal behavior Hosp A/P (1) Acute respiratory failure with hypoxia Code(s): J96.01 - ACUTE RESPIRATORY FAILURE WITH HYPOXIA Status: Acute (2) Acute on chronic systolic ACC/AHA stage C congestive heart failure Code(s): I50.23 - ACUTE ON CHRONIC SYSTOLIC (CONGESTIVE) HEART FAILURE Status : Acute (3) Hypertension Code(s): I10 - ESSENTIAL (PRIMARY) HYPERTENSION Status: Chronic (4) Dyslipidemia Code(s): E78.5 - HYPERLIPIDEMIA, UNSPECIFIED Status: Chronic (5) Diabetes type 2, controlled Code(s): E11.9 - TYPE 2 DIABETES MELLITUS WITHOUT COMPLICATIONS Status: Chronic (6) CKD (chronic kidney disease) stage 3, GFR 30-59 ml/min Code(s): N18.3 - CHRONIC KIDNEY DISEASE, STAGE 3 (MODERATE) Status: Chronic (7) Obesity (BMI 30.0-34.9) Code(s): E66.9 - OBESITY, UNSPECIFIED Status: Chronic (8) CAD (coronary artery disease) Code(s): I25.10 - ATHSCL HEART DISEASE OF [place] CORONARY ARTERY W/O ANG PCTRS Status: Chronic (9) Anemia, normocytic normochromic Code(s): D64.9 - ANEMIA, UNSPECIFIED Status: Chronic (10) COPD (chronic obstructive pulmonary disease) Status: Chronic (11) Aortic stenosis Code(s): I35.0 - NONRHEUMATIC AORTIC (VALVE) STENOSIS Status: Acute - Plan old records reviewed/req, respiratory therapy 03/03/19 continue IV lasix cardiology and CV surgery following Echo pending medication reviewed, continue to provide symptomatic care and supportive care 03/04/19 now pt appears euvolemic, reduce lasix adjust cardiac medication, will defer to cardiology pt will need TAVR PFT stable and improving increase lantus for high blood sugar
--- NOTE | 2019-03-04 13:38 | PRG ---
DATE OF SERVICE: 03/04/2019 SUBJECTIVE: Mr. Price has no complaints. He is currently being considered for transfer to [place]. OBJECTIVE: VITAL SIGNS: He is afebrile, heart rate 76, respiratory rate is 18, blood pressure is 104/56. LUNGS: Clear. HEART: Regular rhythm. Grade 2/6 systolic murmur. ABDOMEN: Soft. Echocardiogram done yesterday shows ejection fraction 35% to 40%, evidence of diastolic dysfunction, and an aortic valve area of 0.9 square cm. He appears clinically stable and is lying flat in bed when I evaluated him, in no distress. Job ID: [id number]
--- NOTE | 2019-03-04 15:33 | EKG ---
Test Reason : Blood Pressure : / mmHG Vent. Rate : 089 BPM Atrial Rate : 089 BPM P-R Int : 164 ms QRS Dur : 100 ms QT Int : 410 ms P-R-T Axes : 061 014 072 degrees QTc Int : 498 ms Normal sinus rhythm Septal infarct , age undetermined Abnormal ECG Confirmed by JOSEF ZELAYA, BEN ([id number]), managing editor CAROLE TAM ([id number]) on 03/04/2019 3:33:00 PM Referred By: Confirmed By:BEN BAHENA MD
--- NOTE | 2019-03-04 17:41 | PDOC.CPN ---
- Subjective Date: 03/04/19 Time: 17:48 Interval history: The pt seen and examined. No overnight events. No cardiac complaints. He stated he had SOB when he had a shower; however, his symptoms was slightly better than yesterday per the pt. - Objective Allergies/Adverse Reactions: Allergies Allergy/AdvReac Type Severity Reaction Status Date / Time IODIDES Allergy Short of Uncoded 03/02/19 13:58 Breath Visit Medications: Current Medications Acetaminophen (Tylenol) 650 mg PO Q4H PRN PRN Reason: Headache/Fever/Mild Pain (1-3) Hydrocodone Bitart/Acetaminophen ([place] 5/325) 1 tab PO Q4H PRN PRN Reason: Moderate Pain (4-6) Albuterol/Ipratropium (Duoneb) 3 ml NEB [id number] [facility] Last Admin: 03/04/19 14:06 Dose: 3 ml Artificial Tears (Tears Naturale) 2 drop EA EYE PRN PRN PRN Reason: Dry Eyes Artificial Tears (Tears Naturale) 1 drop EA EYE QID [facility] Last Admin: 03/04/19 16:38 Dose: 1 drop Aspirin (Ecotrin) 81 mg PO DAILY [facility] Last Admin: 03/04/19 08:34 Dose: 81 mg Atorvastatin Calcium (Lipitor) 80 mg PO HS [facility] Last Admin: 03/03/19 20:47 Dose: 80 mg Bisacodyl (Dulcolax) 10 mg [place] DAILYPRN PRN PRN Reason: Constipation Calcium Carbonate (Tums) 1,000 mg PO Q4H PRN PRN Reason: Heartburn or Indigestion Carvedilol (Coreg) 6.25 mg PO BID-WM [facility] Last Admin: 03/04/19 16:37 Dose: 6.25 mg Clopidogrel Bisulfate (Plavix) 75 mg PO DAILY [facility] Last Admin: 03/04/19 08:35 Dose: 75 mg Cyanocobalamin (Vitamin B-12) 1,000 mcg PO DAILY [facility] Last Admin: 03/04/19 08:36 Dose: 1,000 mcg Dextrose/Water (Dextrose 50%) 25 gm SLOW IVP PRN PRN PRN Reason: Hypoglycemia Diltiazem HCl (Cardizem Cd) 180 mg PO DAILY [facility] Last Admin: 03/04/19 08:34 Dose: 180 mg Famotidine (Pepcid) 20 mg PO BID [facility] Last Admin: 03/04/19 08:35 Dose: 20 mg Fluoxetine HCl (Prozac) 20 mg PO DAILY [facility] Last Admin: 03/04/19 08:35 Dose: 20 mg Furosemide (Lasix) 40 mg SLOW IVP DAILY [facility] Glucagon (Glucagon) 1 mg IM PRN PRN PRN Reason: Hypoglycemia Guaifenesin (Robitussin Sf) 200 mg PO Q4H PRN PRN Reason: Cough Hydralazine HCl (Apresoline) 10 mg SLOW IVP Q4H PRN PRN Reason: SBP > 180 and HR < 70 Dextrose/Water (D5w) 1,000 mls @ 0 mls/hr IV .Q0M PRN PRN Reason: Hypoglycemia Insulin Glargine 20 units/ (Miscellaneous Medication) 0.2 mls @ 0 mls/hr SC [facility] Insulin Glargine 25 units/ (Miscellaneous Medication) 0.25 mls @ 0 mls/hr SC QAM [facility] Last Admin: 03/04/19 08:36 Dose: 0.25 mls Insulin Human Lispro (Humalog) 0 units SC .BEDTIME SLIDING SC PRN PRN Reason: Bedtime Correctional Scale Last Admin: 03/02/19 21:11 Dose: 4 unit Insulin Human Lispro (Humalog) 0 units SC .AGGRESSIVE SLIDING PRN; Protocol PRN Reason: AGGRESSIVE SLIDING SCALE Last Admin: 03/04/19 11:46 Dose: 9 unit Loperamide HCl (Imodium) 2 mg PO PRN PRN PRN Reason: Diarrhea/Loose Stools Loratadine (Claritin) 10 mg PO DAILYPRN PRN PRN Reason: Sinus Symptoms Mometasone Furoate/Formoterol Fumar (Dulera 200 Mcg/5 Mcg Inhaler) 2 puff INH BID-RT [facility] Last Admin: 03/04/19 06:32 Dose: 2 puff Ondansetron HCl (Zofran Odt) 4 mg PO Q6H PRN PRN Reason: Nausea/Vomiting Ondansetron HCl (Zofran) 4 mg IVP Q6H PRN PRN Reason: Nausea/Vomiting Rivaroxaban (Xarelto) 20 mg PO DAILY [facility] Last Admin: 03/04/19 08:35 Dose: 20 mg Senna/Docusate Sodium (Senokot S) 2 tab PO BID PRN PRN Reason: Constipation Sodium Chloride ([place] Nasal [place] 0.65%) 0 ml EA NARE QIDPRN PRN PRN Reason: Nasal Congestion Throat Lozenges (Cepastat Lozenges) 1 susi PO Q2H PRN PRN Reason: Sore Throat Zolpidem Tartrate (Ambien) 5 mg PO HSPRN PRN PRN Reason: Insomnia Vital Signs & Weight: Vital Signs Temp Pulse Pulse Pulse Resp BP BP 03/04/19 15:40 97.6 F 70 18 03/04/19 14:06 66 16 03/04/19 12:14 79 78 104/56 L 03/04/19 11:15 97.4 F L 76 18 03/04/19 08:33 103/58 L 03/04/19 08:00 03/04/19 07:35 97.7 F 88 18 03/04/19 06:32 83 16 03/04/19 06:23 03/04/19 06:21 83 16 BP BP BP Pulse Ox Pulse Ox Pulse Ox 03/04/19 15:40 93/56 L 94 L 03/04/19 14:06 03/04/19 12:14 102/59 L 96 98 03/04/19 11:15 106/62 95 03/04/19 08:33 03/04/19 08:00 94 L 03/04/19 07:35 103/58 L 94 L 03/04/19 06:32 03/04/19 06:23 96 03/04/19 06:21 Weight 233 lb 8 oz - Physical Exam General: alert & oriented x3 HEENT: mucus membranes moist Neck: supple neck Cardiac: regular rate and rhythm, S1/S2 Lungs: decreased breath sounds Extremities: no edema - Labs Result Diagrams: 03/03/19 04:27 03/03/19 04:27 Troponin/CKMB Troponin I 0.028 ng/mL (< 0.028) 03/02/19 15:15 - Telemetry Sinus rhythms and dysrhythmias: sinus rhythm - Assessment/Plan Assessment/Plan: 1. Acute on Chronic systolic HF - stable with NC and IV Lasix 40mg BID; on bblocker, but no REGINALDO/ARB due to CHRISSY 2. COPD/asthma exacerbation - on 2LNC; managed by direct mail marketer 3. Moderate - Severe with MONY 1.17cm2 - may be candidate for TAVR (not a good candidate for conventional AVR), will try to obtain PFT's before discussing with Dr. Byrnes in [place] 4. CAD with hx of stent x 3 in past - all in the LAD, on ASA, Coreg (metoprolol was changed to Coreg due to CAD and CHF management), Statin, and Plavix 5. Prox Afib - remains in SR; on Diltiazem, Coreg, and Xarelto 6. HTN - mildly hypotensive without symptoms; cont. to monitor 7. DM type 2 - managed by PCP 8. HLD - on Statin 9. Obese 10. CHRISSY MAR reviewed * Echo on 03/03/2019 with EF 35-4%, grade III dd, mod dilated LA, mild MR, AR and TR, and akinetic distal anterior wall and apex
[2019-03-04] MEDS: Atorvastatin Calcium 40 MG TAB PO SCH (20:24)
[2019-03-05] MEDS: Mometasone/Formoterol 120 PUFF INHALER INH SCH ×2 (07:09→18:43)
[2019-03-05] MEDS: Carvedilol 6.25 MG TAB PO SCH ×2 (08:41→17:50)
[2019-03-05] MEDS: Famotidine 20 MG TAB PO SCH ×2 (08:41→20:14)
[2019-03-05] MEDS: FLUoxetine HCl 20 MG CAP PO SCH (08:41)
[2019-03-05] MEDS: Rivaroxaban 10 MG TAB PO SCH (08:41)
[2019-03-05] MEDS: Clopidogrel Bisulfate 75 MG TAB PO SCH (08:41)
[2019-03-05] MEDS: Aspirin 81 mg Enteric Coated Tablet PO SCH (08:41)
[2019-03-05] MEDS: Cyanocobalamin (Vitamin B-12) 1,000 MCG TAB PO SCH (08:41)
[2019-03-05] MEDS: Artificial Tears 18 DROP/0.9 ML EA EYE SCH ×4 (08:42→20:15)
[2019-03-05] MEDS: Insulin Glargine 25 UNITS in Pre-Filled Syringe 1 EACH SC SCH (08:42)
--- NOTE | 2019-03-05 08:51 | RAD ---
Portable frontal chest radiograph: 03/05/2019 COMPARISON: 03/02/2019 HISTORY: Congestive failure FINDINGS: Mild increased interstitial density and pulmonary hyperinflation. No focal consolidation or alveolar edema. Right costophrenic angle is not visualized. Mild blunting of left costophrenic angle may signify small volume left pleural fluid or pleural thickening/scar. There has been marked i nterval improvement in previously noted pulmonary vascular congestion and interstitial opacity. IMPRESSION: No alveolar edema or focal consolidation. Significant interval improvement of pulmonary v ascular congestion and interstitial edema when compared to the prior exam.
[2019-03-05] MEDS ORDERED: Furosemide 40 MG/4 ML VIAL SLOW IVP SCH (09:00)
--- NOTE | 2019-03-05 11:32 | PRG ---
DATE OF SERVICE: 03/05/2019 SUBJECTIVE: Colby Price has no complaints. He denies being short of breath. He is afebrile. He actually tells me that a pulmonary doctor at the [place] told him he had no lung disease. OBJECTIVE: VITAL SIGNS: He is afebrile , heart rate is 81, respiratory rate is 17, oximetry is 96% to 97% on 2 L, blood pressure 109/57. LUNGS: Clear today. HEART: Regular rhythm. IMAGING STUDIES: Chest x-ray is clear today compared to admitting film, which showed pulmonary edema. IMPRESSION AND PLAN: Dyspnea secondary to valvular heart disease. I doubt he has asthma. There is no radiographic evidence of interstitial lung disease. Spirometry is ordered for tomorrow, but I do believe aortic valve that is causing his symptoms. Job ID: [id number]
[2019-03-05] MEDS: HumaLOG 300 UNITS/3 ML VIAL SC PRN (12:25)
--- NOTE | 2019-03-05 13:52 | PDOC.CPN ---
- Subjective Date: 03/05/19 Time: 14:02 Interval history: The pt seen and examined. No overnight events. No cardiac complaints. - Objective Allergies/Adverse Reactions: Allergies Allergy/AdvReac Type Severity Reaction Status Date / Time IODIDES Allergy Short of Uncoded 03/02/19 13:58 Breath Visit Medications: Current Medications Acetaminophen (Tylenol) 650 mg PO Q4H PRN PRN Reason: Headache/Fever/Mild Pain (1-3) Hydrocodone Bitart/Acetaminophen ([place] 5/325) 1 tab PO Q4H PRN PRN Reason: Moderate Pain (4-6) Albuterol/Ipratropium (Duoneb) 3 ml NEB [id number] [facility] Last Admin: 03/05/19 06:57 Dose: 3 ml Artificial Tears (Tears Naturale) 2 drop EA EYE PRN PRN PRN Reason: Dry Eyes Artificial Tears (Tears Naturale) 1 drop EA EYE QID [facility] Last Admin: 03/05/19 12:26 Dose: 1 drop Aspirin (Ecotrin) 81 mg PO DAILY [facility] Last Admin: 03/05/19 08:41 Dose: 81 mg Atorvastatin Calcium (Lipitor) 80 mg PO HS [facility] Last Admin: 03/04/19 20:24 Dose: 80 mg Bisacodyl (Dulcolax) 10 mg [place] DAILYPRN PRN PRN Reason: Constipation Calcium Carbonate (Tums) 1,000 mg PO Q4H PRN PRN Reason: Heartburn or Indigestion Carvedilol (Coreg) 6.25 mg PO BID-WM [facility] Last Admin: 03/05/19 08:41 Dose: 6.25 mg Clopidogrel Bisulfate (Plavix) 75 mg PO DAILY [facility] Last Admin: 03/05/19 08:41 Dose: 75 mg Cyanocobalamin (Vitamin B-12) 1,000 mcg PO DAILY [facility] Last Admin: 03/05/19 08:41 Dose: 1,000 mcg Dextrose/Water (Dextrose 50%) 25 gm SLOW IVP PRN PRN PRN Reason: Hypoglycemia Diltiazem HCl (Cardizem Cd) 180 mg PO DAILY [facility] Last Admin: 03/05/19 08:41 Dose: 180 mg Famotidine (Pepcid) 20 mg PO BID [facility] Last Admin: 03/05/19 08:41 Dose: 20 mg Fluoxetine HCl (Prozac) 20 mg PO DAILY [facility] Last Admin: 03/05/19 08:41 Dose: 20 mg Furosemide (Lasix) 40 mg SLOW IVP DAILY [facility] Last Admin: 03/05/19 08:41 Dose: 40 mg Glucagon (Glucagon) 1 mg IM PRN PRN PRN Reason: Hypoglycemia Guaifenesin (Robitussin Sf) 200 mg PO Q4H PRN PRN Reason: Cough Hydralazine HCl (Apresoline) 10 mg SLOW IVP Q4H PRN PRN Reason: SBP > 180 and HR < 70 Dextrose/Water (D5w) 1,000 mls @ 0 mls/hr IV .Q0M PRN PRN Reason: Hypoglycemia Insulin Glargine 20 units/ (Miscellaneous Medication) 0.2 mls @ 0 mls/hr SC HS [facility] Last Admin: 03/04/19 20:26 Dose: 0.2 mls Insulin Glargine 25 units/ (Miscellaneous Medication) 0.25 mls @ 0 mls/hr SC QAM [facility] Last Admin: 03/05/19 08:42 Dose: 0.25 mls Insulin Human Lispro (Humalog) 0 units SC .BEDTIME SLIDING SC PRN PRN Reason: Bedtime Correctional Scale Last Admin: 03/05/19 12:25 Dose: 3 unit Insulin Human Lispro (Humalog) 0 units SC .AGGRESSIVE SLIDING PRN; Protocol PRN Reason: AGGRESSIVE SLIDING SCALE Last Admin: 03/04/19 11:46 Dose: 9 unit Loperamide HCl (Imodium) 2 mg PO PRN PRN PRN Reason: Diarrhea/Loose Stools Loratadine (Claritin) 10 mg PO DAILYPRN PRN PRN Reason: Sinus Symptoms Mometasone Furoate/Formoterol Fumar (Dulera 200 Mcg/5 Mcg Inhaler) 2 puff INH BID-RT [facility] Last Admin: 03/05/19 07:09 Dose: 2 puff Ondansetron HCl (Zofran Odt) 4 mg PO Q6H PRN PRN Reason: Nausea/Vomiting Ondansetron HCl (Zofran) 4 mg IVP Q6H PRN PRN Reason: Nausea/Vomiting Rivaroxaban (Xarelto) 20 mg PO DAILY [facility] Last Admin: 03/05/19 08:41 Dose: 20 mg Senna/Docusate Sodium (Senokot S) 2 tab PO BID PRN PRN Reason: Constipation Sodium Chloride ([place] Nasal [place] 0.65%) 0 ml EA NARE QIDPRN PRN PRN Reason: Nasal Congestion Throat Lozenges (Cepastat Lozenges) 1 susi PO Q2H PRN PRN Reason: Sore Throat Zolpidem Tartrate (Ambien) 5 mg PO HSPRN PRN PRN Reason: Insomnia Vital Signs & Weight: Vital Signs Temp Pulse Pulse Pulse Resp BP BP 03/05/19 12:21 81 86 104/55 L 100/56 L 03/05/19 11:52 96.4 F L 76 18 03/05/19 08:00 96 F L 81 17 03/05/19 07:09 83 16 03/05/19 06:59 03/05/19 06:57 83 16 03/05/19 04:00 97.7 F 75 23 H BP BP Pulse Ox Pulse Ox Pulse Ox 03/05/19 12:21 97 97 03/05/19 11:52 106/59 L 95 03/05/19 08:00 109/57 L 97 03/05/19 07:09 03/05/19 06:59 94 L 03/05/19 06:57 03/05/19 04:00 109/53 L 96 Weight 220 lb 0.341 oz - Physical Exam General: alert & oriented x3 HEENT: mucus membranes moist Neck: supple neck Cardiac: regular rate and rhythm, S1/S2 Lungs: decreased breath sounds Extremities: no edema - Labs Result Diagrams: 03/03/19 04:27 03/03/19 04:27 Troponin/CKMB Troponin I 0.028 ng/mL (< 0.028) 03/02/19 15:15 - Telemetry Sinus rhythms and dysrhythmias: sinus rhythm - Assessment/Plan Assessment/Plan: 1. Acute on Chronic systolic HF - stable with RA and IV Lasix 40mg IV qd; on bblocker, but no REGINALDO/ARB due to CHRISSY 2. COPD/asthma exacerbation - on RA; Per Dr Lund, the pt's symptoms are most likely from pulm. edema, not from pulmonary; managed by edge setter 3. Moderate - Severe with MONY 1.17cm2 - may be candidate for TAVR (not a good candidate for conventional AVR), will try to obtain PFT's before discussing with Dr. Byrnes in [place] 4. CAD with hx of stent x 3 in past - all in the LAD, on ASA, Coreg (metoprolol was changed to Coreg due to CAD and CHF management), Statin, and Plavix 5. Prox Afib - remains in SR; on Diltiazem, Coreg, and Xarelto 6. HTN - mildly hypotensive without symptoms; cont. to monitor 7. DM type 2 - managed by PCP 8. HLD - on Statin 9. Obese 10. CHRISSY MAR reviewed * Echo on 03/03/2019 with EF 35-4%, grade III dd, mod dilated LA, mild MR, AR and TR, and akinetic distal anterior wall and apex. Pt. seen and eval. by me. I agree with the A/P by the POWER PLANT OPERATOR. He will have bedside PFT's tomorrow and I will discuss his case with Dr. Byrnes in [place] to see if he is a candidate for TAVR. Breathing better today. Walked some in his room. luke
[2019-03-05] MEDS: Senokot S 8.6-50 MG TAB PO PRN (17:53)
--- NOTE | 2019-03-05 19:14 | PDOC.HOSPP ---
- Subjective Encounter Date: 03/05/19 Encounter Time: 11:00 Subjective: no overnight events. This morning, feels better and shortness of breath resolved - Objective Vital Signs & Weight: Vital Signs (12 hours) Temp Pulse Pulse Pulse Resp BP BP 03/05/19 18:43 74 16 03/05/19 15:52 98.0 F 70 20 03/05/19 14:14 86 16 03/05/19 12:21 81 86 104/55 L 100/56 L 03/05/19 11:52 96.4 F L 76 18 03/05/19 08:00 96 F L 81 17 BP BP Pulse Ox Pulse Ox Pulse Ox 03/05/19 18:43 96 03/05/19 15:52 94/56 L 94 L 03/05/19 14:14 03/05/19 12:21 97 97 03/05/19 11:52 106/59 L 95 03/05/19 08:00 109/57 L 97 Weight Weight 220 lb 0.341 oz I&O: 03/04/19 03/05/19 03/06/19 06:59 06:59 06:59 Intake Total 300 1200 800 Output Total 2100 1350 1800 Balance -1800 -150 -1000 Result Diagrams: 03/03/19 04:27 03/03/19 04:27 Additional Labs: Accuchecks 03/05/19 03/05/19 03/05/19 18:02 11:17 06:44 POC Glucose 135 H 265 H 117 H 03/04/19 20:24 POC Glucose 191 H Radiology Reviewed by me: Yes EKG Reviewed by me: Yes Hospitalist ROS - Review of Systems Constitutional: denies: fever, chills, sweats, weakness, malaise, other Eyes: denies: pain, vision change, conjunctivae inflammation, eyelid inflammation, redness, other Respiratory: denies: cough, dry, shortness of breath, hemoptysis, SOB with excertion, pleuritic pain, sputum, wheezing, other Cardiovascular: denies: chest pain, palpitations, orthopnea, paroxysmal noc. dyspnea, edema, light headedness, other Gastrointestinal: denies: nausea, vomiting, abdominal pain, diarrhea, constipation, melena, hematochezia, other Genitourinary: denies: dysuria, frequency, incontinence, hematuria, retention, other - Medication Medications: Active Medications Generic Name Dose Route Start Last Admin Trade Name Freq PRN Reason Stop Dose Admin Albuterol/Ipratropium 3 ml 03/03/19 13:00 03/05/19 18:43 Duoneb NEB 3 ml [id number] SIN Administration Artificial Tears 1 drop 03/03/19 09:00 03/05/19 17:51 Tears Naturale EA EYE 1 drop QID SIN Administration Aspirin 81 mg 03/03/19 09:00 03/05/19 08:41 Ecotrin PO 81 mg DAILY [facility] Administration Atorvastatin Calcium 80 mg 03/03/19 21:00 03/04/19 20:24 Lipitor PO 80 mg HS [facility]IN Administration Carvedilol 6.25 mg 03/04/19 08:00 03/05/19 17:50 Coreg PO 6.25 mg BID-WM [facility] Administration Clopidogrel Bisulfate 75 mg 03/03/19 09:00 03/05/19 08:41 Plavix PO 75 mg DAILY [facility]IN Administration Cyanocobalamin 1,000 mcg 03/03/19 09:00 03/05/19 08:41 Vitamin B-12 PO 1,000 mcg DAILY [facility] Administration Diltiazem HCl 180 mg 03/03/19 09:00 03/05/19 08:41 Cardizem Cd PO 180 mg DAILY [facility] Administration Famotidine 20 mg 03/02/19 21:00 03/05/19 08:41 Pepcid PO 20 mg BID [facility]IN Administration Fluoxetine HCl 20 mg 03/03/19 09:00 03/05/19 08:41 Prozac PO 20 mg DAILY [facility] Administration Furosemide 40 mg 03/05/19 09:00 03/05/19 08:41 Lasix SLOW IVP 40 mg DAILY [facility] Administration Insulin Glargine 20 units/ 0.2 mls @ 0 mls/hr 03/04/19 21:00 03/04/19 20:26 Miscellaneous Medication SC 0.2 mls HS [facility]IN Administration Insulin Glargine 25 units/ 0.25 mls @ 0 mls/hr 03/04/19 09:00 03/05/19 08:42 Miscellaneous Medication SC 0.25 mls QAM [facility]IN Administration Insulin Human Lispro 0 units 03/02/19 13:46 03/05/19 12:25 Humalog SC 3 unit .BEDTIME SLIDING SC PRN Administration Bedtime Correctional Scale Insulin Human Lispro 0 units 03/03/19 19:30 03/04/19 11:46 Humalog SC 9 unit .AGGRESSIVE SLIDING PRN Administration AGGRESSIVE SLIDING SCALE Protocol Mometasone Furoate/Formoterol Fumar 2 puff 03/03/19 18:30 03/05/19 18:43 Dulera 200 Mcg/5 Mcg Inhaler INH 2 puff BID-RT [facility]IN Administration Rivaroxaban 20 mg 03/03/19 09:00 03/05/19 08:41 Xarelto PO 20 mg DAILY [facility]IN Administration Senna/Docusate Sodium 2 tab 03/02/19 13:46 03/05/19 17:53 Senokot S PO 2 tab BID PRN Administration Constipation - Exam General Appearance: NAD, awake alert Hosp A/P - Plan moderate/sever Aortic stenosis Code(s): I35.0 - NONRHEUMATIC AORTIC (VALVE) STENOSIS Status: Acute Acute on chronic systolic ACC/AHA stage C congestive heart failure Code(s): I50.23 - ACUTE ON CHRONIC SYSTOLIC (CONGESTIVE) HEART FAILURE Status : Acute Dyslipidemia Code(s): E78.5 - HYPERLIPIDEMIA, UNSPECIFIED Status: Chronic Diabetes type 2, controlled Code(s): E11.9 - TYPE 2 DIABETES MELLITUS WITHOUT COMPLICATIONS Status: Chronic CKD (chronic kidney disease) stage 3, GFR 30-59 ml/min Code(s): N18.3 - CHRONIC KIDNEY DISEASE, STAGE 3 (MODERATE) Status: Chronic Obesity (BMI 30.0-34.9) Code(s): E66.9 - OBESITY, UNSPECIFIED Status: Chronic CAD (coronary artery disease) Code(s): I25.10 - ATHSCL HEART DISEASE OF [place] CORONARY ARTERY W/O ANG PCTRS Status: Chronic Acute respiratory failure with hypoxia (resolved) Code(s): J96.01 - ACUTE RESPIRATORY FAILURE WITH HYPOXIA Status: Acute - Plan Considering clinical picture, patient prompt improvement with diuresis, and medical history, patient's symptoms likely due to aortic stenosis rather than intrapulmonary disease per cardiology, candidate for TAVR but requests PFTs prior to procedure -will reduce lasix to 20mg PO qd in context of aortic stenosis and euvolemic status considering they can reduce preload -current renal function may be new baseline rather than CHRISSY; will discuss starting low dose lisinopril s/p TAVR with cardiology
[2019-03-05] MEDS: Atorvastatin Calcium 40 MG TAB PO SCH (20:14)
[2019-03-05] MEDS: Insulin Glargine 20 UNITS in Pre-Filled Syringe 1 EACH SC SCH (20:15)
[2019-03-06 04:28] LABS: Anion Gap 12 mmol/L (10-20); BUN (Urea Nitrogen) 30 mg/dL (8.4-25.7); Calc. Creatinine Clearance 71 mL/min (70-130); Calcium 8.5 mg/dL (7.8-10.44); Carbon Dioxide 23 mmol/L (23-31); Chloride 108 mmol/L (98-107); Estimated GFR-MDRD 53; Glucose 120 mg/dL (83-110); Potassium 3.8 mmol/L (3.5-5.1); Sodium 139 mmol/L (136-145)
[2019-03-06] MEDS: Mometasone/Formoterol 120 PUFF INHALER INH SCH (07:05)
[2019-03-06] MEDS: Carvedilol 6.25 MG TAB PO SCH ×2 (08:32→17:05)
[2019-03-06] MEDS: Rivaroxaban 10 MG TAB PO SCH (08:33)
[2019-03-06] MEDS: Insulin Glargine 25 UNITS in Pre-Filled Syringe 1 EACH SC SCH (08:33)
[2019-03-06] MEDS: Aspirin 81 mg Enteric Coated Tablet PO SCH (08:33)
[2019-03-06] MEDS: Artificial Tears 18 DROP/0.9 ML EA EYE SCH ×4 (08:33→19:52)
[2019-03-06] MEDS: Senokot S 8.6-50 MG TAB PO PRN (08:33)
[2019-03-06] MEDS: Clopidogrel Bisulfate 75 MG TAB PO SCH (08:33)
[2019-03-06] MEDS: FLUoxetine HCl 20 MG CAP PO SCH (08:33)
[2019-03-06] MEDS: Furosemide 20 MG TAB PO SCH (08:33)
[2019-03-06] MEDS: Famotidine 20 MG TAB PO SCH ×2 (08:33→19:52)
[2019-03-06] MEDS: Cyanocobalamin (Vitamin B-12) 1,000 MCG TAB PO SCH (08:33)
--- NOTE | 2019-03-06 09:40 | PRG ---
DATE OF SERVICE: 03/06/2019 SUBJECTIVE: This morning, he is awake, alert, responsive. No shortness of breath. The x-ray has much improved. OBJECTIVE: VITAL SIGNS: Temperature 97, pulse 78, blood pressure 116/64, respiratory rate 18, saturations are 93% on room air. CHEST: No wheezing or crackles. CARDIAC: Normal S1 and S2. No gallops. ABDOMEN: No mass. Soft. LABORATORY DATA: Creatinine 1.3. ASSESSMENT: Respiratory failure, congestive heart failure secondary to . PLAN: I agree with transfer to [place] for ongoing care. Pulmonary Critical Care will follow at a distance. Job ID: [id number]
[2019-03-06] MEDS: HumaLOG 300 UNITS/3 ML VIAL SC PRN ×2 (11:59→17:05)
--- NOTE | 2019-03-06 12:42 | PDOC.CPN ---
- Subjective Date: 03/06/19 Time: 12:52 Interval history: The pt seen and examined. No overnight events. No cardiac complaints. - Objective Allergies/Adverse Reactions: Allergies Allergy/AdvReac Type Severity Reaction Status Date / Time IODIDES Allergy Short of Uncoded 03/02/19 13:58 Breath Visit Medications: Current Medications Acetaminophen (Tylenol) 650 mg PO Q4H PRN PRN Reason: Headache/Fever/Mild Pain (1-3) Hydrocodone Bitart/Acetaminophen ([place] 5/325) 1 tab PO Q4H PRN PRN Reason: Moderate Pain (4-6) Albuterol/Ipratropium (Duoneb) 3 ml NEB [id number] [facility] Last Admin: 03/06/19 06:54 Dose: Not Given Artificial Tears (Tears Naturale) 2 drop EA EYE PRN PRN PRN Reason: Dry Eyes Artificial Tears (Tears Naturale) 1 drop EA EYE QID [facility] Last Admin: 03/06/19 12:00 Dose: 1 drop Aspirin (Ecotrin) 81 mg PO DAILY [facility] Last Admin: 03/06/19 08:33 Dose: 81 mg Atorvastatin Calcium (Lipitor) 80 mg PO HS [facility] Last Admin: 03/05/19 20:14 Dose: 80 mg Bisacodyl (Dulcolax) 10 mg [place] DAILYPRN PRN PRN Reason: Constipation Calcium Carbonate (Tums) 1,000 mg PO Q4H PRN PRN Reason: Heartburn or Indigestion Carvedilol (Coreg) 6.25 mg PO BID-[facility] Last Admin: 03/06/19 08:32 Dose: 6.25 mg Clopidogrel Bisulfate (Plavix) 75 mg PO DAILY [facility] Last Admin: 03/06/19 08:33 Dose: 75 mg Cyanocobalamin (Vitamin B-12) 1,000 mcg PO DAILY [facility] Last Admin: 03/06/19 08:33 Dose: 1,000 mcg Dextrose/Water (Dextrose 50%) 25 gm SLOW IVP PRN PRN PRN Reason: Hypoglycemia Diltiazem HCl (Cardizem Cd) 180 mg PO DAILY [facility] Last Admin: 03/06/19 08:33 Dose: 180 mg Famotidine (Pepcid) 20 mg PO BID [facility] Last Admin: 03/06/19 08:33 Dose: 20 mg Fluoxetine HCl (Prozac) 20 mg PO DAILY [facility] Last Admin: 03/06/19 08:33 Dose: 20 mg Furosemide (Lasix) 20 mg PO DAILY [facility] Last Admin: 03/06/19 08:33 Dose: 20 mg Glucagon (Glucagon) 1 mg IM PRN PRN PRN Reason: Hypoglycemia Guaifenesin (Robitussin Sf) 200 mg PO Q4H PRN PRN Reason: Cough Hydralazine HCl (Apresoline) 10 mg SLOW IVP Q4H PRN PRN Reason: SBP > 180 and HR < 70 Dextrose/Water (D5w) 1,000 mls @ 0 mls/hr IV .Q0M PRN PRN Reason: Hypoglycemia Insulin Glargine 20 units/ (Miscellaneous Medication) 0.2 mls @ 0 mls/hr SC HS [facility] Last Admin: 03/05/19 20:15 Dose: 0.2 mls Insulin Glargine 25 units/ (Miscellaneous Medication) 0.25 mls @ 0 mls/hr SC QAM [facility] Last Admin: 03/06/19 08:33 Dose: 0.25 mls Insulin Human Lispro (Humalog) 0 units SC .BEDTIME SLIDING SC PRN PRN Reason: Bedtime Correctional Scale Last Admin: 03/05/19 12:25 Dose: 3 unit Insulin Human Lispro (Humalog) 0 units SC .AGGRESSIVE SLIDING PRN; Protocol PRN Reason: AGGRESSIVE SLIDING SCALE Last Admin: 03/06/19 11:59 Dose: 9 unit Loperamide HCl (Imodium) 2 mg PO PRN PRN PRN Reason: Diarrhea/Loose Stools Loratadine (Claritin) 10 mg PO DAILYPRN PRN PRN Reason: Sinus Symptoms Mometasone Furoate/Formoterol Fumar (Dulera 200 Mcg/5 Mcg Inhaler) 2 puff INH BID-RT [facility] Last Admin: 03/06/19 07:05 Dose: Not Given Ondansetron HCl (Zofran Odt) 4 mg PO Q6H PRN PRN Reason: Nausea/Vomiting Ondansetron HCl (Zofran) 4 mg IVP Q6H PRN PRN Reason: Nausea/Vomiting Rivaroxaban (Xarelto) 20 mg PO DAILY [facility] Last Admin: 03/06/19 08:33 Dose: 20 mg Senna/Docusate Sodium (Senokot S) 2 tab PO BID PRN PRN Reason: Constipation Last Admin: 03/06/19 08:33 Dose: 2 tab Sodium Chloride ([place] Nasal [place] 0.65%) 0 ml EA NARE QIDPRN PRN PRN Reason: Nasal Congestion Throat Lozenges (Cepastat Lozenges) 1 susi PO Q2H PRN PRN Reason: Sore Throat Zolpidem Tartrate (Ambien) 5 mg PO HSPRN PRN PRN Reason: Insomnia Vital Signs & Weight: Vital Signs Temp Pulse Pulse Pulse Resp BP BP 03/06/19 11:54 97.4 F L 73 18 03/06/19 10:05 76 80 115/58 L 90/55 L 03/06/19 07:45 97.7 F 78 18 03/06/19 04:00 97.8 F 76 18 BP BP Pulse Ox Pulse Ox Pulse Ox 03/06/19 11:54 92/52 L 96 03/06/19 10:05 97 96 03/06/19 07:45 116/64 95 03/06/19 04:00 105/57 L 93 L Weight 226 lb 6.636 oz - Physical Exam General: alert & oriented x3 HEENT: mucus membranes moist Neck: supple neck Cardiac: regular rate and rhythm, S1/S2 Lungs: decreased breath sounds Neuro: cranial nerve 2-12 intact Extremities: no edema - Labs Result Diagrams: 03/03/19 04:27 03/06/19 03:52 Troponin/CKMB Troponin I 0.028 ng/mL (< 0.028) 03/02/19 15:15 - Telemetry Sinus rhythms and dysrhythmias: sinus rhythm - Assessment/Plan Assessment/Plan: 1. Acute on Chronic systolic HF - stable with RA and IV Lasix 40mg IV qd; on bblocker, but no REGINALDO/ARB due to CHRISSY 2. COPD/asthma exacerbation - on RA; Per Dr Lund, the pt's symptoms are most likely from pulm. edema, not from pulmonary; managed by maintenance apprentice 3. Moderate - Severe with MONY 1.17cm2 - may be candidate for TAVR (not a good candidate for conventional AVR), will try to obtain PFT's before discussing with Dr. Byrnes in [place] 4. CAD with hx of stent x 3 in past - all in the LAD, on ASA, Coreg (metoprolol was changed to Coreg due to CAD and CHF management), Statin, and Plavix 5. Prox Afib - remains in SR; on Diltiazem, Coreg, and Xarelto 6. HTN - mildly hypotensive without symptoms; cont. to monitor 7. DM type 2 - managed by PCP 8. HLD - on Statin 9. Obese 10. CHRISSY MAR reviewed * Echo on 03/03/2019 with EF 35-4%, grade III dd, mod dilated LA, mild MR, AR and TR, and akinetic distal anterior wall and apex. Pt. seen and eval. by me. I agree with the A/P by the BOILER SERVICE TECHNICIAN. Chest clear. RRR. Plan for transfer to [place] today.
--- NOTE | 2019-03-06 15:58 | PDOC.HOSPP ---
- Subjective Encounter Date: 03/06/19 Encounter Time: 09:00 Subjective: no overnight events. This morning, shortness of breath continues to improve. has no complaints. - Objective Vital Signs & Weight: Vital Signs (12 hours) Temp Pulse Pulse Pulse Resp BP BP 03/06/19 11:54 97.4 F L 73 18 03/06/19 10:05 76 80 115/58 L 90/55 L 03/06/19 07:45 97.7 F 78 18 03/06/19 04:00 97.8 F 76 18 BP BP Pulse Ox Pulse Ox Pulse Ox 03/06/19 11:54 92/52 L 96 03/06/19 10:05 97 96 03/06/19 07:45 116/64 95 03/06/19 04:00 105/57 L 93 L Weight Weight 226 lb 6.636 oz I&O: 03/05/19 03/06/19 03/07/19 06:59 06:59 06:59 Intake Total 1200 1100 Output Total 1350 2700 Balance -150 -1600 Result Diagrams: 03/03/19 04:27 03/06/19 03:52 Additional Labs: Accuchecks 03/06/19 03/06/19 03/05/19 10:24 06:00 20:16 POC Glucose 296 H 127 H 164 H 03/05/19 18:02 POC Glucose 135 H Hospitalist ROS - Review of Systems Constitutional: denies: fever, chills, sweats, weakness, malaise, other Respiratory: denies: cough, dry, shortness of breath, hemoptysis, SOB with excertion, pleuritic pain, sputum, wheezing, other Cardiovascular: denies: chest pain, palpitations, orthopnea, paroxysmal noc. dyspnea, edema, light headedness, other Gastrointestinal: denies: nausea, vomiting, abdominal pain, diarrhea, constipation, melena, hematochezia, other Genitourinary: denies: dysuria, frequency, incontinence, hematuria, retention, other Neurological: denies: weakness, numbness, incoordination, change in speech, confusion, seizures, other - Medication Medications: Active Medications Generic Name Dose Route Start Last Admin Trade Name Freq PRN Reason Stop Dose Admin Artificial Tears 1 drop 03/03/19 09:00 03/06/19 12:00 Tears Naturale EA EYE 1 drop QID SIN Administration Aspirin 81 mg 03/03/19 09:00 03/06/19 08:33 Ecotrin PO 81 mg DAILY SIN Administration Atorvastatin Calcium 80 mg 03/03/19 21:00 03/05/19 20:14 Lipitor PO 80 mg HS SIN Administration Carvedilol 6.25 mg 03/04/19 08:00 03/06/19 08:32 Coreg PO 6.25 mg BID-WM SIN Administration Clopidogrel Bisulfate 75 mg 03/03/19 09:00 03/06/19 08:33 Plavix PO 75 mg DAILY SIN Administration Cyanocobalamin 1,000 mcg 03/03/19 09:00 03/06/19 08:33 Vitamin B-12 PO 1,000 mcg DAILY SIN Administration Diltiazem HCl 180 mg 03/03/19 09:00 03/06/19 08:33 Cardizem Cd PO 180 mg DAILY SIN Administration Famotidine 20 mg 03/02/19 21:00 03/06/19 08:33 Pepcid PO 20 mg BID SIN Administration Fluoxetine HCl 20 mg 03/03/19 09:00 03/06/19 08:33 Prozac PO 20 mg DAILY SIN Administration Furosemide 20 mg 03/06/19 09:00 03/06/19 08:33 Lasix PO 20 mg DAILY SIN Administration Insulin Glargine 20 units/ 0.2 mls @ 0 mls/hr 03/04/19 21:00 03/05/19 20:15 Miscellaneous Medication SC 0.2 mls HS SIN Administration Insulin Glargine 25 units/ 0.25 mls @ 0 mls/hr 03/04/19 09:00 03/06/19 08:33 Miscellaneous Medication SC 0.25 mls QAM SIN Administration Insulin Human Lispro 0 units 03/02/19 13:46 03/05/19 12:25 Humalog SC 3 unit .BEDTIME SLIDING SC PRN Administration Bedtime Correctional Scale Insulin Human Lispro 0 units 03/03/19 19:30 03/06/19 11:59 Humalog SC 9 unit .AGGRESSIVE SLIDING PRN Administration AGGRESSIVE SLIDING SCALE Protocol Rivaroxaban 20 mg 03/03/19 09:00 03/06/19 08:33 Xarelto PO 20 mg DAILY SIN Administration Senna/Docusate Sodium 2 tab 03/02/19 13:46 03/06/19 08:33 Senokot S PO 2 tab BID PRN Administration Constipation - Exam General Appearance: NAD, awake alert Eye: PERRL, anicteric sclera Neck: supple, symmetric, no JVD, no thyromegaly, no lymphadenopathy, no carotid bruit Heart: RRR, normal peripheral pulses, murmur present, III/IV Respiratory: CTAB, no wheezes, no rales, no ronchi, normal chest expansion, no tachypnea, normal percussion Gastrointestinal: soft, non-tender, non-distended, normal bowel sounds, no palpable masses, no hepatomegaly, no splenomegaly, no bruit Hosp A/P - Plan moderate/sever Aortic stenosis Code(s): I35.0 - NONRHEUMATIC AORTIC (VALVE) STENOSIS Status: Acute Acute on chronic systolic ACC/AHA stage C congestive heart failure Code(s): I50.23 - ACUTE ON CHRONIC SYSTOLIC (CONGESTIVE) HEART FAILURE Status : Acute Dyslipidemia Code(s): E78.5 - HYPERLIPIDEMIA, UNSPECIFIED Status: Chronic Diabetes type 2, controlled Code(s): E11.9 - TYPE 2 DIABETES MELLITUS WITHOUT COMPLICATIONS Status: Chronic CKD (chronic kidney disease) stage 3, GFR 30-59 ml/min Code(s): N18.3 - CHRONIC KIDNEY DISEASE, STAGE 3 (MODERATE) Status: Chronic Obesity (BMI 30.0-34.9) Code(s): E66.9 - OBESITY, UNSPECIFIED Status: Chronic CAD (coronary artery disease) Code(s): I25.10 - ATHSCL HEART DISEASE OF [place] CORONARY ARTERY W/O ANG PCTRS Status: Chronic Acute respiratory failure with hypoxia (resolved) Code(s): J96.01 - ACUTE RESPIRATORY FAILURE WITH HYPOXIA Status: Acute - Plan Considering clinical picture, patient prompt improvement with diuresis, and medical history, patient's symptoms likely due to aortic stenosis rather than intrapulmonary disease per cardiology, candidate for TAVR but requests PFTs prior to procedure -will reduce lasix to 20mg PO qd in context of aortic stenosis and euvolemic status considering it can reduce preload -current renal function may be new baseline rather than CHRISSY; will discuss starting low dose lisinopril s/p TAVR with cardiology
[2019-03-06] MEDS: Atorvastatin Calcium 40 MG TAB PO SCH (19:52)
[2019-03-06] MEDS: Insulin Glargine 20 UNITS in Pre-Filled Syringe 1 EACH SC SCH (21:00)
--- NOTE | 2019-03-07 08:53 | PRG ---
DATE OF SERVICE: 03/07/2019 SUBJECTIVE: Colby Price is awake, alert, responsive. No pain, no shortness of breath. OBJECTIVE: VITAL SIGNS: Temperature 98, pulse 66, respiratory rate 18, saturations 99% on room air, blood pressure 98/62. CHEST: No wheezing or crackles. CARDIAC: 2/6 systolic murmur at upper sternal border. ABDOMEN: Soft. IMPRESSION: 1. Respiratory failure, resolved. 2. Congestive heart failure. 3. Aortic stenosis. PLAN: He is to be transferred to [facility] for management of his aortic stenosis. Pulmonary santana, continue supportive care. Neb treatments as needed. Job ID: [id number]
[2019-03-07] MEDS: Aspirin 81 mg Enteric Coated Tablet PO SCH (09:03)
[2019-03-07] MEDS: Furosemide 20 MG TAB PO SCH (09:03)
[2019-03-07] MEDS: Cyanocobalamin (Vitamin B-12) 1,000 MCG TAB PO SCH (09:03)
[2019-03-07] MEDS: Carvedilol 6.25 MG TAB PO SCH ×2 (09:03→17:38)
[2019-03-07] MEDS: FLUoxetine HCl 20 MG CAP PO SCH (09:03)
[2019-03-07] MEDS: Famotidine 20 MG TAB PO SCH (09:03)
[2019-03-07] MEDS: Artificial Tears 18 DROP/0.9 ML EA EYE SCH ×3 (09:04→17:38)
[2019-03-07] MEDS: Insulin Glargine 25 UNITS in Pre-Filled Syringe 1 EACH SC SCH (09:04)
[2019-03-07] MEDS: Rivaroxaban 10 MG TAB PO SCH (10:08)
[2019-03-07] MEDS: Clopidogrel Bisulfate 75 MG TAB PO SCH (10:08)
[2019-03-07] MEDS: HumaLOG 300 UNITS/3 ML VIAL SC PRN (12:14)
--- NOTE | 2019-03-07 14:41 | PDOC.CPN ---
- Subjective Date: 03/07/19 Time: 14:40 Interval history: the pt seen and examined. No overnight events. No cardiac complaints. - Objective Allergies/Adverse Reactions: Allergies Allergy/AdvReac Type Severity Reaction Status Date / Time IODIDES Allergy Short of Uncoded 03/02/19 13:58 Breath Visit Medications: Current Medications Acetaminophen (Tylenol) 650 mg PO Q4H PRN PRN Reason: Headache/Fever/Mild Pain (1-3) Hydrocodone Bitart/Acetaminophen ([place] 5/325) 1 tab PO Q4H PRN PRN Reason: Moderate Pain (4-6) Artificial Tears (Tears Naturale) 2 drop EA EYE PRN PRN PRN Reason: Dry Eyes Artificial Tears (Tears Naturale) 1 drop EA EYE QID [facility] Last Admin: 03/07/19 12:14 Dose: 1 drop Aspirin (Ecotrin) 81 mg PO DAILY [facility] Last Admin: 03/07/19 09:03 Dose: 81 mg Atorvastatin Calcium (Lipitor) 80 mg PO HS [facility] Last Admin: 03/06/19 19:52 Dose: 80 mg Bisacodyl (Dulcolax) 10 mg IA DAILYPRN PRN PRN Reason: Constipation Calcium Carbonate (Tums) 1,000 mg PO Q4H PRN PRN Reason: Heartburn or Indigestion Carvedilol (Coreg) 6.25 mg PO BID-[facility] Last Admin: 03/07/19 09:03 Dose: 6.25 mg Clopidogrel Bisulfate (Plavix) 75 mg PO DAILY [facility] Last Admin: 03/07/19 10:08 Dose: 75 mg Cyanocobalamin (Vitamin B-12) 1,000 mcg PO DAILY [facility] Last Admin: 03/07/19 09:03 Dose: 1,000 mcg Dextrose/Water (Dextrose 50%) 25 gm SLOW IVP PRN PRN PRN Reason: Hypoglycemia Diltiazem HCl (Cardizem Cd) 180 mg PO DAILY [facility] Last Admin: 03/07/19 09:04 Dose: 180 mg Famotidine (Pepcid) 20 mg PO BID [facility] Last Admin: 03/07/19 09:03 Dose: 20 mg Fluoxetine HCl (Prozac) 20 mg PO DAILY [facility] Last Admin: 03/07/19 09:03 Dose: 20 mg Furosemide (Lasix) 20 mg PO DAILY [facility] Last Admin: 03/07/19 09:03 Dose: 20 mg Glucagon (Glucagon) 1 mg IM PRN PRN PRN Reason: Hypoglycemia Guaifenesin (Robitussin Sf) 200 mg PO Q4H PRN PRN Reason: Cough Hydralazine HCl (Apresoline) 10 mg SLOW IVP Q4H PRN PRN Reason: SBP > 180 and HR < 70 Dextrose/Water (D5w) 1,000 mls @ 0 mls/hr IV .Q0M PRN PRN Reason: Hypoglycemia Insulin Glargine 20 units/ (Miscellaneous Medication) 0.2 mls @ 0 mls/hr [facility] Last Admin: 03/06/19 21:00 Dose: 0.2 mls Insulin Glargine 25 units/ (Miscellaneous Medication) 0.25 mls @ 0 mls/hr SC [facility] Last Admin: 03/07/19 09:04 Dose: 0.25 mls Insulin Human Lispro (Humalog) 0 units SC .BEDTIME SLIDING SC PRN PRN Reason: Bedtime Correctional Scale Last Admin: 03/05/19 12:25 Dose: 3 unit Insulin Human Lispro (Humalog) 0 units SC .AGGRESSIVE SLIDING PRN; Protocol PRN Reason: AGGRESSIVE SLIDING SCALE Last Admin: 03/07/19 12:14 Dose: 11 unit Loperamide HCl (Imodium) 2 mg PO PRN PRN PRN Reason: Diarrhea/Loose Stools Loratadine (Claritin) 10 mg PO DAILYPRN PRN PRN Reason: Sinus Symptoms Ondansetron HCl (Zofran Odt) 4 mg PO Q6H PRN PRN Reason: Nausea/Vomiting Ondansetron HCl (Zofran) 4 mg IVP Q6H PRN PRN Reason: Nausea/Vomiting Rivaroxaban (Xarelto) 20 mg PO DAILY [facility] Last Admin: 03/07/19 10:08 Dose: 20 mg Senna/Docusate Sodium (Senokot S) 2 tab PO BID PRN PRN Reason: Constipation Last Admin: 03/06/19 08:33 Dose: 2 tab Sodium Chloride ([place] Nasal [place] 0.65%) 0 ml EA NARE QIDPRN PRN PRN Reason: Nasal Congestion Throat Lozenges (Cepastat Lozenges) 1 susi PO Q2H PRN PRN Reason: Sore Throat Zolpidem Tartrate (Ambien) 5 mg PO HSPRN PRN PRN Reason: Insomnia Vital Signs & Weight: Vital Signs Temp Pulse Pulse Pulse Resp BP BP 03/07/19 11:15 98.6 F 85 18 03/07/19 09:15 91 90 121/64 90/55 L 03/07/19 07:35 03/07/19 07:34 98.1 F 66 18 03/07/19 03:33 98.4 F 80 18 BP BP BP Pulse Ox Pulse Ox Pulse Ox 03/07/19 11:15 101/55 L 95 03/07/19 09:15 99 97 03/07/19 07:35 95 03/07/19 07:34 98/62 95 03/07/19 03:33 163/79 H 94 L Weight 226 lb 1.6 oz - Physical Exam General: alert & oriented x3 HEENT: mucus membranes moist Neck: supple neck Cardiac: regular rate and rhythm, S1/S2 Lungs: clear to auscultation Neuro: cranial nerve 2-12 intact Extremities: no edema - Labs Result Diagrams: 03/03/19 04:27 03/06/19 03:52 Troponin/CKMB Troponin I 0.028 ng/mL (< 0.028) 03/02/19 15:15 - Telemetry Sinus rhythms and dysrhythmias: sinus rhythm - Assessment/Plan Assessment/Plan: 1. Acute on Chronic systolic HF - stable with RA and IV Lasix 40mg IV qd; on bblocker, but no REGINALDO/ARB due to CHRISSY 2. COPD/asthma exacerbation - on RA; Per Dr Lund, the pt's symptoms are most likely from pulm. edema, not from pulmonary; managed by delivery table feeder 3. Moderate - Severe with MONY 1.17cm2 - may be candidate for TAVR (not a good candidate for conventional AVR), will try to obtain PFT's before discussing with Dr. Byrnes in [place] 4. CAD with hx of stent x 3 in past - all in the LAD, on ASA, Coreg (metoprolol was changed to Coreg due to CAD and CHF management), Statin, and Plavix 5. Prox Afib - remains in SR; on Diltiazem, Coreg, and Xarelto 6. HTN - mildly hypotensive without symptoms; cont. to monitor 7. DM type 2 - managed by PCP 8. HLD - on Statin 9. Obese 10. CHRISSY. Improved. creat. 1.3 today. MAR reviewed * Echo on 03/03/2019 with EF 35-4%, grade III dd, mod dilated LA, mild MR, AR and TR, and akinetic distal anterior wall and apex. * Plan for tx to [place] for TAVR Pt. seen and eval. by me. i agree with the A/P by the BUCKET CHUCKER. He is feeling better and is able to ambulate with only mild dyspnea. Renal function has improved. Plan for transfer to [place] for probable TAVR.
[2019-03-07 15:17] VITALS: BP 96/52; TEMP 99
--- NOTE | 2019-03-08 15:33 | DIS ---
DATE OF ADMISSION: 03/02/2019 DATE OF DISCHARGE: 03/07/2019 HOSPITAL COURSE: Mr. Price is a 74-year-old male, who presented with acute shortness of breath, initially it was suspected that the patient had an intrapulmonary process based on his report of having COPD, but he was diagnosed with severe aortic stenosis resulting in pulmonary congestion. The patient was diuresed and achieved prompt improvement in his shortness of breath. He was a candidate for TAVR, but Cardiology wanted to ensure sufficient pulmonary reserve for surgery, so the patient was transferred to a hospital in [place] in order to do PFTs prior to proceeding with TAVR. The patient was transferred hemodynamically stable with significantly improved breathing. He was breathing and saturating well on room air. PHYSICAL EXAMINATION: VITAL SIGNS: Unremarkable on exam. GENERAL: He was in no apparent distress. Alert and oriented x3. CARDIAC: Regular rate and rhythm. No gallops. 3/4 decrescendo pansystolic murmur, most audible in the left second intercostal space. PULMONARY: Clear to auscultation bilaterally with mild rales in the lower romero of both sides of the lungs. No rhonchi. No wheezing. No tachypnea. ABDOMEN: Soft, nontender, nondistended. Normal bowel sounds. EXTREMITIES: No lower extremity edema. ASSESSMENT AND PLAN: Mr. Price is a 74-year-old male, who presented with acute respiratory failure with hypoxia due to acute on chronic systolic stage C congestive heart failure and [id number] aortic stenosis. The patient was diuresed and improved overnight. Considering prompt improvement and imaging, the patient's shortness of breath was unlikely due to an intrapulmonary process. However, in order to ensure sufficient pulmonary reserve, the patient was transferred to a hospital that could conduct PFTs prior to TAVR. Job ID: [id number]
== END 2019-03-07 20:39 | disposition short-term general hospital (02) | DRG 306 ==
LOC: ERS 09:03 → 2NO 10:45
PROVIDERS: ADMIT Internal Medicine; ATTEND Internal Medicine
PROC: 5A09457 Assistance with Respiratory Ventilation, 24-96 Consecutive Hours, Continuous Positive Airway Pressure (ICD-10-PCS; principal; 2019-03-02)
DX: I35.0 Nonrheumatic aortic (valve) stenosis (principal); J96.01 Acute respiratory failure with hypoxia; I50.23 Acute on chronic systolic (congestive) heart failure; I13.0 Hypertensive heart and chronic kidney disease with heart failure and stage 1 through stage 4 chronic kidney disease, or unspecified chronic kidney disease; N17.9 Acute kidney failure, unspecified; J44.1 Chronic obstructive pulmonary disease with (acute) exacerbation; J45.901 Unspecified asthma with (acute) exacerbation; E11.22 Type 2 diabetes mellitus with diabetic chronic kidney disease; I25.10 Atherosclerotic heart disease of native coronary artery without angina pectoris; E78.5 Hyperlipidemia, unspecified; E66.01 Morbid (severe) obesity due to excess calories; I48.0 Paroxysmal atrial fibrillation; G47.33 Obstructive sleep apnea (adult) (pediatric); D63.1 Anemia in chronic kidney disease; I95.9 Hypotension, unspecified; N18.3 Chronic kidney disease, stage 3 (moderate); Z95.5 Presence of coronary angioplasty implant and graft; Z91.041 Radiographic dye allergy status; Z79.4 Long term (current) use of insulin; Z79.82 Long term (current) use of aspirin; Z79.51 Long term (current) use of inhaled steroids; Z79.899 Other long term (current) drug therapy; Z68.30 Body mass index [BMI] 30.0-30.9, adult
CPT/HCPCS: 36415; 36416; 71045; 80048; 80053; 81003; 82550; 82805; 83690; 83735; 83880; 84443; 84484; 84550; 85025; 93005; 93306; 93798; 94640; 94660; 94760; 96374; J1644; J1815; J1940; J7620

== ENCOUNTER 2020-11-06 18:06 | Inpatient (IN) | payer OTHER ==
[2020-11-06 19:57] LABS: #Eosinphils 0.2 thou/uL (0.0-0.7); #Lymphocytes 1.5 thou/uL (1.20-3.40); #Monocytes 0.6 thou/uL (0.11-0.59); #Neutrophils 7.9 thou/uL (1.40-6.50); %Basophils 0.1 % (0.0-1.0); %Eosinophils 2.2 % (0.0-10.0); %Lymphocytes 14.8 % (21.0-51.0); %Monocytes 5.8 % (0.0-10.0); Hemoglobin 13.3 g/dL (14.0-18.0); Mean Corpuscular HGB CONC 34.6 g/dL (32.0-36.0); Mean Corpuscular Hemoglobin 31.4 pg (27.0-31.0); Mean Corpuscular Volume 90.7 fL (78.0-98.0); Mean Platelet Volume 6.8 fL (7.4-10.4); Platelet Count 217 thou/uL (130-400); RBC Distribution Width 12.4 % (11.5-14.5); Red Blood Cell (RBC) Count 4.22 mill/uL (4.70-6.10); White Blood Cell (WBC) Count 10.3 thou/uL (4.8-10.8)
[2020-11-06 20:08] LABS: INR-International Normal Ratio 1.3; PTT 28.2 sec (22.9-36.1); Prothrombin Time 16.3 sec (12.0-14.7)
[2020-11-06 20:18] LABS: ALT (SGPT) 11 U/L (8-55); AST (SGOT) 14 U/L (5-34); Albumin 4.1 g/dL (3.4-4.8); Alkaline Phosphatase 84 U/L (40-110); Anion Gap 16 mmol/L (10-20); BUN (Urea Nitrogen) 40 mg/dL (8.4-25.7); Bilirubin, Total 0.6 mg/dL (0.2-1.2); Calc. Creatinine Clearance 0 mL/min (70-130); Carbon Dioxide 26 mmol/L (23-31); Chloride 103 mmol/L (98-107); Globulin 2.7 g/dL (2.4-3.5); Glucose 122 mg/dL (83-110); Potassium 4.5 mmol/L (3.5-5.1); Protein, Total 6.8 g/dL (5.8-8.1); Sodium 140 mmol/L (136-145)
[2020-11-06] MEDS ORDERED: Morphine 4 MG/ML VIAL ONE (20:49)
[2020-11-06] MEDS ORDERED: Dextrose 5% in Water 1,000 ML IV PRN (23:11)
[2020-11-06] MEDS ORDERED: Ondansetron PF 4 MG/2 ML Vial IVP PRN (23:11)
[2020-11-06] MEDS ORDERED: Insulin Regular 300 UNITS/3 ML VIAL SC PRN (23:11)
[2020-11-06] MEDS ORDERED: Morphine 4 MG/ML VIAL SLOW IVP PRN (23:11)
[2020-11-06] MEDS ORDERED: Dextrose 50% Abboject 50 ML SYRINGE SLOW IVP PRN (23:11)
[2020-11-06] MEDS ORDERED: hydrALAZINE 20 MG/ML VIAL SLOW IVP PRN (23:11)
[2020-11-06] MEDS ORDERED: traMADol HCl 50 MG TAB PO PRN (23:16)
[2020-11-06] MEDS ORDERED: Cyclobenzaprine 10 MG TAB PO PRN (23:16)
[2020-11-06] MEDS ORDERED: Gabapentin 300 MG CAP PO SCH (23:59)
[2020-11-06] MEDS ORDERED: Sodium Chloride 0.9% 1,000 ML IV SCH (23:59)
[2020-11-07] MEDS ORDERED: Acetaminophen 500 MG TAB ONE ×2 (00:22→06:20)
[2020-11-07] MEDS: Acetaminophen 500 MG TAB PO SCH ×4 (00:33→18:04)
[2020-11-07] MEDS ORDERED: traMADol HCl 50 MG TAB ONE (00:36)
[2020-11-07 00:57] LABS: SARS-CoV-2 NAA Rapid Test Not Detected (NotDetected)
[2020-11-07 01:03] VITALS: BMI 29.7
[2020-11-07] MEDS: traMADol HCl 50 MG TAB PO SCH ×4 (02:18→20:23)
[2020-11-07 07:05] LABS: #Basophils 0.1 thou/uL (0.0-0.2); #Eosinphils 0.3 thou/uL (0.0-0.7); #Lymphocytes 2.3 thou/uL (1.20-3.40); #Monocytes 0.6 thou/uL (0.11-0.59); #Neutrophils 3.9 thou/uL (1.40-6.50); %Basophils 0.9 % (0.0-1.0); %Eosinophils 4.9 % (0.0-10.0); %Lymphocytes 32.1 % (21.0-51.0); %Monocytes 7.8 % (0.0-10.0); %Neutrophils 54.3 % (42.0-75.0); Hemoglobin 11.8 g/dL (14.0-18.0); Mean Corpuscular HGB CONC 32.7 g/dL (32.0-36.0); Mean Corpuscular Hemoglobin 29.9 pg (27.0-31.0); Mean Corpuscular Volume 91.4 fL (78.0-98.0); Mean Platelet Volume 6.6 fL (7.4-10.4); Platelet Count 184 thou/uL (130-400); RBC Distribution Width 12.7 % (11.5-14.5); Red Blood Cell (RBC) Count 3.94 mill/uL (4.70-6.10); White Blood Cell (WBC) Count 7.1 thou/uL (4.8-10.8)
[2020-11-07 07:25] LABS: Anion Gap 11 mmol/L (10-20); BUN (Urea Nitrogen) 37 mg/dL (8.4-25.7); Calc. Creatinine Clearance 53 mL/min (70-130); Calcium 8.5 mg/dL (7.8-10.44); Carbon Dioxide 28 mmol/L (23-31); Chloride 104 mmol/L (98-107); Glucose 86 mg/dL (83-110); Magnesium 1.4 mg/dL (1.6-2.6); Phosphorus 3.4 mg/dL (2.3-4.7); Potassium 3.9 mmol/L (3.5-5.1); Sodium 139 mmol/L (136-145)
[2020-11-07] MEDS ORDERED: Magnesium Sulfate 4 GM in Sodium Chloride 0.9% 250 ML 250 ML IVPB SCH (09:00)
[2020-11-07] MEDS: Senokot S 8.6-50 MG TAB PO SCH ×2 (10:03→20:25)
[2020-11-07] MEDS: Gabapentin 300 MG CAP PO SCH ×3 (10:04→20:23)
[2020-11-07] MEDS ORDERED: Famotidine 20 MG TAB ONE (10:06)
[2020-11-07] MEDS: Famotidine 20 MG TAB PO SCH (10:08)
[2020-11-07] MEDS ORDERED: Albuterol 200 PUFF (6.7GM INHALER) INH PRN (20:08)
[2020-11-08] MEDS: Acetaminophen 500 MG TAB PO SCH ×4 (01:03→18:50)
[2020-11-08] MEDS: traMADol HCl 50 MG TAB PO SCH ×4 (01:03→20:29)
[2020-11-08 05:03] LABS: #Eosinphils 0.4 thou/uL (0.0-0.7); #Lymphocytes 1.6 thou/uL (1.20-3.40); #Monocytes 0.4 thou/uL (0.11-0.59); #Neutrophils 4.5 thou/uL (1.40-6.50); %Basophils 0.7 % (0.0-1.0); %Eosinophils 5.2 % (0.0-10.0); %Lymphocytes 23.4 % (21.0-51.0); %Monocytes 5.7 % (0.0-10.0); Hemoglobin 12.7 g/dL (14.0-18.0); Mean Corpuscular HGB CONC 32.5 g/dL (32.0-36.0); Mean Corpuscular Volume 92.2 fL (78.0-98.0); Mean Platelet Volume 6.8 fL (7.4-10.4); Platelet Count 197 thou/uL (130-400); RBC Distribution Width 12.7 % (11.5-14.5); Red Blood Cell (RBC) Count 4.25 mill/uL (4.70-6.10); White Blood Cell (WBC) Count 6.9 thou/uL (4.8-10.8)
[2020-11-08 05:26] LABS: Anion Gap 13 mmol/L (10-20); BUN (Urea Nitrogen) 25 mg/dL (8.4-25.7); Calc. Creatinine Clearance 60 mL/min (70-130); Calcium 8.6 mg/dL (7.8-10.44); Carbon Dioxide 26 mmol/L (23-31); Chloride 106 mmol/L (98-107); Glucose 139 mg/dL (83-110); Magnesium 2.4 mg/dL (1.6-2.6); Phosphorus 2.6 mg/dL (2.3-4.7); Potassium 4.5 mmol/L (3.5-5.1); Sodium 140 mmol/L (136-145)
[2020-11-08] MEDS: Mometasone 200 MCG/Formoterol 5 MCG 120 PUFF INHALER INH SCH ×3 (08:23→23:53)
[2020-11-08] MEDS ORDERED: Isosorbide Dinitrate 5 MG TAB PO SCH ×2 (09:00→09:15)
[2020-11-08] MEDS ORDERED: Cholecalciferol 1,000 UNITS (25 MCG) TAB PO SCH (09:30)
[2020-11-08] MEDS: Multivitamin W/ Minerals 1 TAB PO SCH (09:44)
[2020-11-08] MEDS: metFORMIN 500 MG TAB PO SCH ×2 (09:44→16:42)
[2020-11-08] MEDS: Senokot S 8.6-50 MG TAB PO SCH ×2 (09:44→20:30)
[2020-11-08] MEDS: Famotidine 20 MG TAB PO SCH (09:44)
[2020-11-08] MEDS: Atorvastatin Calcium 40 MG TAB PO SCH (09:44)
[2020-11-08] MEDS: Cyanocobalamin (Vitamin B-12) 1,000 MCG TAB PO SCH (09:44)
[2020-11-08] MEDS: Gabapentin 300 MG CAP PO SCH ×3 (09:44→20:28)
[2020-11-08] MEDS: FLUoxetine HCl 10 MG CAP PO SCH (09:44)
[2020-11-08] MEDS: Insulin Regular 300 UNITS/3 ML VIAL SC PRN (11:37)
[2020-11-08] MEDS: Rivaroxaban 10 MG TAB PO SCH (16:42)
[2020-11-09] MEDS: Acetaminophen 500 MG TAB PO SCH ×4 (00:14→18:40)
[2020-11-09] MEDS: traMADol HCl 50 MG TAB PO SCH ×4 (02:35→20:18)
[2020-11-09] MEDS: Mometasone 200 MCG/Formoterol 5 MCG 120 PUFF INHALER INH SCH ×2 (06:35→18:58)
[2020-11-09 06:51] LABS: BUN (Urea Nitrogen) 25 mg/dL (8.4-25.7); Calc. Creatinine Clearance 65 mL/min (70-130); Calcium 8.9 mg/dL (7.8-10.44); Carbon Dioxide 24 mmol/L (23-31); Chloride 104 mmol/L (98-107); Glucose 144 mg/dL (83-110); Magnesium 2.1 mg/dL (1.6-2.6); Potassium 4.5 mmol/L (3.5-5.1); Sodium 139 mmol/L (136-145)
[2020-11-09 08:35] LABS: Anion Gap 16 mmol/L (10-20)
[2020-11-09] MEDS: Senokot S 8.6-50 MG TAB PO SCH ×2 (08:43→20:14)
[2020-11-09] MEDS: Atorvastatin Calcium 40 MG TAB PO SCH (08:44)
[2020-11-09] MEDS: Multivitamin W/ Minerals 1 TAB PO SCH (08:44)
[2020-11-09] MEDS: metFORMIN 500 MG TAB PO SCH ×2 (08:44→17:03)
[2020-11-09] MEDS: Cholecalciferol 1,000 UNITS (25 MCG) TAB PO SCH (08:44)
[2020-11-09] MEDS: Cyanocobalamin (Vitamin B-12) 1,000 MCG TAB PO SCH (08:45)
[2020-11-09] MEDS: Famotidine 20 MG TAB PO SCH (08:45)
[2020-11-09] MEDS: Gabapentin 300 MG CAP PO SCH ×3 (08:45→20:13)
[2020-11-09] MEDS: Isosorbide Dinitrate 5 MG TAB PO SCH (12:47)
[2020-11-09] MEDS: FLUoxetine HCl 10 MG CAP PO SCH (12:47)
[2020-11-09] MEDS: Rivaroxaban 10 MG TAB PO SCH (17:03)
[2020-11-10] MEDS: traMADol HCl 50 MG TAB PO SCH ×4 (02:06→14:11)
[2020-11-10] MEDS: Acetaminophen 500 MG TAB PO SCH ×5 (06:00→23:55)
[2020-11-10] MEDS: Mometasone 200 MCG/Formoterol 5 MCG 120 PUFF INHALER INH SCH ×2 (06:37→18:26)
[2020-11-10 06:44] LABS: Calcium 8.9 mg/dL (7.8-10.44); Chloride 101 mmol/L (98-107); Potassium 4.6 mmol/L (3.5-5.1); Sodium 134 mmol/L (136-145)
[2020-11-10 06:54] LABS: Anion Gap 15 mmol/L (10-20); BUN (Urea Nitrogen) 22 mg/dL (8.4-25.7); Calc. Creatinine Clearance 65 mL/min (70-130); Carbon Dioxide 25 mmol/L (23-31); Glucose 178 mg/dL (83-110); Magnesium 1.9 mg/dL (1.6-2.6); Phosphorus 2.7 mg/dL (2.3-4.7)
[2020-11-10] MEDS: Senokot S 8.6-50 MG TAB PO SCH ×2 (09:15→20:42)
[2020-11-10] MEDS: Atorvastatin Calcium 40 MG TAB PO SCH (09:18)
[2020-11-10] MEDS: FLUoxetine HCl 10 MG CAP PO SCH (09:19)
[2020-11-10] MEDS: Cholecalciferol 1,000 UNITS (25 MCG) TAB PO SCH (09:20)
[2020-11-10] MEDS: Cyanocobalamin (Vitamin B-12) 1,000 MCG TAB PO SCH (09:20)
[2020-11-10] MEDS: Multivitamin W/ Minerals 1 TAB PO SCH (09:20)
[2020-11-10] MEDS: Isosorbide Dinitrate 5 MG TAB PO SCH (09:20)
[2020-11-10] MEDS: Famotidine 20 MG TAB PO SCH (09:20)
[2020-11-10] MEDS: metFORMIN 500 MG TAB PO SCH ×2 (09:20→17:19)
[2020-11-10] MEDS: Gabapentin 300 MG CAP PO SCH ×3 (09:21→20:41)
[2020-11-10] MEDS: Polyethylene Glycol 3350 17 GM Packet PO SCH (09:24)
[2020-11-10] MEDS: Insulin Regular 300 UNITS/3 ML VIAL SC PRN ×2 (14:13→17:21)
[2020-11-11] MEDS: traMADol HCl 50 MG TAB PO SCH ×4 (03:14→20:33)
[2020-11-11] MEDS: Acetaminophen 500 MG TAB PO SCH ×3 (05:13→18:28)
[2020-11-11 06:35] LABS: Anion Gap 11 mmol/L (10-20); BUN (Urea Nitrogen) 21 mg/dL (8.4-25.7); Calc. Creatinine Clearance 66 mL/min (70-130); Calcium 9.3 mg/dL (7.8-10.44); Carbon Dioxide 27 mmol/L (23-31); Chloride 101 mmol/L (98-107); Glucose 140 mg/dL (83-110); Magnesium 1.7 mg/dL (1.6-2.6); Phosphorus 2.8 mg/dL (2.3-4.7); Potassium 4.3 mmol/L (3.5-5.1); Sodium 135 mmol/L (136-145)
[2020-11-11] MEDS: Mometasone 200 MCG/Formoterol 5 MCG 120 PUFF INHALER INH SCH ×2 (07:48→20:03)
[2020-11-11] MEDS ORDERED: Furosemide 20 MG TAB PO SCH (09:00)
[2020-11-11] MEDS: Polyethylene Glycol 3350 17 GM Packet PO SCH (09:23)
[2020-11-11] MEDS: Gabapentin 300 MG CAP PO SCH ×3 (09:23→20:33)
[2020-11-11] MEDS: metFORMIN 500 MG TAB PO SCH ×2 (09:23→18:28)
[2020-11-11] MEDS: Cyanocobalamin (Vitamin B-12) 1,000 MCG TAB PO SCH (09:24)
[2020-11-11] MEDS: Atorvastatin Calcium 40 MG TAB PO SCH (09:24)
[2020-11-11] MEDS: Cholecalciferol 1,000 UNITS (25 MCG) TAB PO SCH (09:24)
[2020-11-11] MEDS: Senokot S 8.6-50 MG TAB PO SCH ×2 (09:25→20:34)
[2020-11-11] MEDS: Multivitamin W/ Minerals 1 TAB PO SCH (09:25)
[2020-11-11] MEDS: Famotidine 20 MG TAB PO SCH (09:25)
[2020-11-11] MEDS: FLUoxetine HCl 10 MG CAP PO SCH (09:33)
[2020-11-11] MEDS: Tamsulosin HCl 0.4 MG CAP PO SCH (09:33)
[2020-11-11] MEDS: Isosorbide Dinitrate 5 MG TAB PO SCH (09:34)
[2020-11-11] MEDS ORDERED: Magnesium Sulfate 3 GM in Sodium Chloride 0.9% 100 ML IV SCH (13:30)
[2020-11-11] MEDS: Rivaroxaban 10 MG TAB PO SCH (18:28)
[2020-11-12] MEDS: traMADol HCl 50 MG TAB PO SCH ×4 (03:48→19:47)
[2020-11-12] MEDS: Acetaminophen 500 MG TAB PO SCH ×5 (03:48→17:48)
[2020-11-12] MEDS: Mometasone 200 MCG/Formoterol 5 MCG 120 PUFF INHALER INH SCH ×2 (08:27→19:15)
[2020-11-12] MEDS: metFORMIN 500 MG TAB PO SCH ×2 (08:29→17:23)
[2020-11-12] MEDS: Multivitamin W/ Minerals 1 TAB PO SCH (08:29)
[2020-11-12] MEDS: Cholecalciferol 1,000 UNITS (25 MCG) TAB PO SCH (08:30)
[2020-11-12] MEDS: Atorvastatin Calcium 40 MG TAB PO SCH (08:30)
[2020-11-12] MEDS: Cyanocobalamin (Vitamin B-12) 1,000 MCG TAB PO SCH (08:30)
[2020-11-12] MEDS: Gabapentin 300 MG CAP PO SCH ×3 (08:31→19:47)
[2020-11-12] MEDS: Tamsulosin HCl 0.4 MG CAP PO SCH (08:31)
[2020-11-12] MEDS: Polyethylene Glycol 3350 17 GM Packet PO SCH (08:33)
[2020-11-12] MEDS: Senokot S 8.6-50 MG TAB PO SCH ×2 (08:33→19:48)
[2020-11-12] MEDS: Isosorbide Dinitrate 5 MG TAB PO SCH (09:56)
[2020-11-12] MEDS: FLUoxetine HCl 10 MG CAP PO SCH (09:56)
[2020-11-12] MEDS: Insulin Regular 300 UNITS/3 ML VIAL SC PRN ×2 (14:34→17:26)
[2020-11-12] MEDS: Rivaroxaban 10 MG TAB PO SCH (17:23)
[2020-11-13] MEDS: Acetaminophen 500 MG TAB PO SCH ×3 (00:42→12:40)
[2020-11-13] MEDS: traMADol HCl 50 MG TAB PO SCH ×3 (02:13→14:06)
[2020-11-13] MEDS ORDERED: Polyethylene Glycol 3350 17 GM Packet PO PRN (06:18)
[2020-11-13] MEDS ORDERED: Senokot S 8.6-50 MG TAB PO PRN (06:18)
[2020-11-13] MEDS: Mometasone 200 MCG/Formoterol 5 MCG 120 PUFF INHALER INH SCH (07:00)
[2020-11-13] MEDS: Atorvastatin Calcium 40 MG TAB PO SCH (08:22)
[2020-11-13] MEDS: metFORMIN 500 MG TAB PO SCH (08:22)
[2020-11-13] MEDS: Multivitamin W/ Minerals 1 TAB PO SCH (08:23)
[2020-11-13] MEDS: Gabapentin 300 MG CAP PO SCH (08:23)
[2020-11-13] MEDS: Cholecalciferol 1,000 UNITS (25 MCG) TAB PO SCH (08:23)
[2020-11-13] MEDS: Isosorbide Dinitrate 5 MG TAB PO SCH (08:25)
[2020-11-13] MEDS: Tamsulosin HCl 0.4 MG CAP PO SCH (08:25)
[2020-11-13] MEDS: Cyanocobalamin (Vitamin B-12) 1,000 MCG TAB PO SCH (08:25)
[2020-11-13] MEDS: FLUoxetine HCl 10 MG CAP PO SCH (08:26)
[2020-11-13 12:26] VITALS: BP 133/78; TEMP 98.1
[2020-11-13] MEDS: Insulin Regular 300 UNITS/3 ML VIAL SC PRN (12:43)
== END 2020-11-13 15:15 | DRG 552 ==
LOC: ERS 18:06 → 2NO 22:20 → ERHOLD 23:16 → 2NO 11-07 12:43 → SURG B 11-08 17:54
PROVIDERS: ADMIT Surgery; ATTEND Surgery
DX: S32.019A Unspecified fracture of first lumbar vertebra, initial encounter for closed fracture (principal); N17.9 Acute kidney failure, unspecified; Z20.822 Contact with and (suspected) exposure to COVID-19; I25.10 Atherosclerotic heart disease of native coronary artery without angina pectoris; E78.5 Hyperlipidemia, unspecified; M50.31 Other cervical disc degeneration, high cervical region; I48.0 Paroxysmal atrial fibrillation; J44.9 Chronic obstructive pulmonary disease, unspecified; G47.33 Obstructive sleep apnea (adult) (pediatric); E66.01 Morbid (severe) obesity due to excess calories; M47.812 Spondylosis without myelopathy or radiculopathy, cervical region; N18.9 Chronic kidney disease, unspecified; E11.22 Type 2 diabetes mellitus with diabetic chronic kidney disease; I12.9 Hypertensive chronic kidney disease with stage 1 through stage 4 chronic kidney disease, or unspecified chronic kidney disease; I08.1 Rheumatic disorders of both mitral and tricuspid valves; W18.30XA Fall on same level, unspecified, initial encounter; Z95.5 Presence of coronary angioplasty implant and graft; Z68.29 Body mass index [BMI] 29.0-29.9, adult; Z91.09 Other allergy status, other than to drugs and biological substances; Z79.899 Other long term (current) drug therapy; Z79.82 Long term (current) use of aspirin; Z95.2 Presence of prosthetic heart valve
CPT/HCPCS: 36415; 36416; 70450; 71045; 72100; 72125; 72131; 80048; 80053; 83735; 84100; 84484; 85025; 85610; 85730; 93005; 93306; 93880; 94640; 94664; 96374; G0237; G0238; J1815; J2270; J3475; J3490; J7050; J7620; U0002

== ENCOUNTER 2020-12-25 12:03 | Outpatient (CLI) | payer OTHER | END 2020-12-25 12:04 | disposition home or self-care (01) | LOC: RAD 12:03 | DX: M48.56XA Collapsed vertebra, not elsewhere classified, lumbar region, initial encounter for fracture (principal); M54.2 Cervicalgia; M47.812 Spondylosis without myelopathy or radiculopathy, cervical region; M47.816 Spondylosis without myelopathy or radiculopathy, lumbar region | CPT/HCPCS: 72050; 72100 ==

== ENCOUNTER 2021-03-25 09:31 | Outpatient (CLI) | payer OTHER | END 2021-03-25 09:32 | disposition home or self-care (01) | LOC: BICRAD 09:31 | PROVIDERS: ATTEND Surgery | DX: M54.2 Cervicalgia (principal); M47.812 Spondylosis without myelopathy or radiculopathy, cervical region; M47.816 Spondylosis without myelopathy or radiculopathy, lumbar region; S32.010D Wedge compression fracture of first lumbar vertebra, subsequent encounter for fracture with routine healing | CPT/HCPCS: 72050; 72110 ==

== ENCOUNTER 2023-04-07 05:35 | Observation (INO) | payer OTHER ==
[2023-04-05 13:27] LABS: Hematocrit 36.2 % (38.8-50.0); Hemoglobin 12.5 g/dL (13.5-17.5); Mean Corpuscular HGB CONC 34.5 g/dL (32.0-36.0); Mean Corpuscular Hemoglobin 30.5 pg (27.0-33.0); Mean Corpuscular Volume 88.3 fl (81.2-95.1); Mean Platelet Volume 9.2 fl (7.4-10.4); Platelet Count 203 10x3/uL (150-450); RBC Distribution Width 14.6 % (11.5-14.5); White Blood Cell (WBC) Count 7.4 10x3/uL (3.5-10.5)
[2023-04-05 13:36] LABS: INR-International Normal Ratio 1.1; PTT 27.4 sec (22.0-33.0); Prothrombin Time 11.4 sec (9.5-12.1)
[2023-04-05 13:46] LABS: Anion Gap 15 mmol/L (10-20); BUN (Urea Nitrogen) 19 mg/dL (8.4-25.7); Calc. Creatinine Clearance 69 mL/min (70-130); Calcium 8.7 mg/dL (7.8-10.44); Carbon Dioxide 19 mmol/L (23-31); Chloride 112 mmol/L (98-107); Estimated GFR 59; Glucose 169 mg/dL (83-110); Potassium 4.4 mmol/L (3.5-5.1); Sodium 142 mmol/L (136-145)
[2023-04-07] MEDS ORDERED: Heparin 10,000 UNITS/ 10 ML VIAL ONE (06:50)
[2023-04-07] MEDS ORDERED: Heparin 25,000 units/D5W 500 ML ONE (06:51)
[2023-04-07] MEDS ORDERED: Protamine Sulfate 50 MG/5 ML VIAL ONE (06:51)
[2023-04-07] MEDS ORDERED: Potassium Chloride 20 MEQ TAB PO PRN (08:00)
[2023-04-07] MEDS ORDERED: Etomidate 40 MG (20 mL) VIAL ONE (08:12)
[2023-04-07] MEDS ORDERED: PHENYLEPHRINE-NS 100 MCG/ML 10 ML SYRINGE ONE (08:23)
[2023-04-07] MEDS ORDERED: Rocuronium Bromide 10 MG/ML (10ML VIAL) ONE (08:23)
[2023-04-07] MEDS ORDERED: PROPOFOL 200 MG/20 ML VIAL ONE (08:23)
[2023-04-07] MEDS ORDERED: Albuterol HFA (OR) 200 PUFF INH ONE (08:23)
[2023-04-07] MEDS ORDERED: Ondansetron PF 4 MG/2 ML Vial ONE (08:23)
[2023-04-07] MEDS ORDERED: Lidocaine 1% PF 5 ML VIAL ONE (08:23)
[2023-04-07] MEDS ORDERED: Vasopressin 20 UNITS/ML VIAL ONE (09:08)
[2023-04-07] MEDS ORDERED: Midazolam HCl 2 mg/2 ml Vial ONE (09:13)
[2023-04-07] MEDS ORDERED: Albumin 5% 500 ML ONE (09:17)
[2023-04-07] MEDS ORDERED: Isoproterenol 0.2 MG/1 ML AMP ONE (09:31)
[2023-04-07] MEDS ORDERED: SUGAMMADEX SODIUM 200 MG/2 ML VIAL ONE (10:03)
[2023-04-07] MEDS ORDERED: Ondansetron ODT 4 MG TAB PO PRN (15:12)
[2023-04-07] MEDS ORDERED: Albuterol 2.5 MG (3 mL) NEB NEB PRN (16:12)
[2023-04-07 17:50] VITALS: BMI 30.1
[2023-04-07] MEDS: Sucralfate 1 GM TAB PO SCH (18:00)
[2023-04-07] MEDS: HYDROcodone/Acetaminophen 5/325 mg Tablet PO PRN (18:15)
[2023-04-07] MEDS: Ipratropium/Albuterol 3 ML NEB NEB SCH (18:26)
[2023-04-07] MEDS: Mometasone 200 MCG/Formoterol 5 MCG 120 PUFF INHALER INH SCH (18:29)
[2023-04-07] MEDS: Sodium Chloride 0.9% 500 ML IV SCH (19:43)
[2023-04-07 21:14] LABS: #Eosinphils 0.1 thou/uL (0.0-0.7); #Monocytes 0.4 thou/uL (0.11-0.59); #Neutrophils 8.7 thou/uL (1.40-6.50); %Basophils 0.1 % (0.0-1.0); %Eosinophils 1.2 % (0.0-10.0); %Monocytes 3.6 % (0.0-10.0); %Neutrophils 88.6 % (42.0-75.0); Hematocrit 30.4 % (42.0-52.0); Hemoglobin 10.1 g/dL (14.0-18.0); Mean Corpuscular HGB CONC 33.2 g/dL (32.0-36.0); Mean Corpuscular Hemoglobin 30.2 pg (27.0-31.0); Mean Platelet Volume 8.8 fL (7.4-10.4); Platelet Count 124 10x3/uL (130-400); RBC Distribution Width 14.9 % (11.5-14.5); Red Blood Cell (RBC) Count 3.34 mill/uL (4.70-6.10); White Blood Cell (WBC) Count 9.8 10x3/uL (4.8-10.8)
[2023-04-07] MEDS: Insulin Glargine 30 UNITS/0.3 ML VIAL SC SCH (21:18)
[2023-04-07] MEDS: Apixaban 5 MG TAB PO SCH (21:19)
[2023-04-07 21:48] LABS: Anion Gap 11 mmol/L (10-20); BUN (Urea Nitrogen) 20 mg/dL (8.4-25.7); Calc. Creatinine Clearance 72 mL/min (70-130); Calcium 7.8 mg/dL (7.8-10.44); Carbon Dioxide 19 mmol/L (23-31); Chloride 115 mmol/L (98-107); Estimated GFR 60; Glucose 142 mg/dL (83-110); Magnesium 1.4 mg/dL (1.6-2.6); Potassium 4.6 mmol/L (3.5-5.1); Sodium 140 mmol/L (136-145)
[2023-04-08] MEDS: Magnesium 2 GM/50 ML(in water) 2 GM in Premix 1 BAG IVPB SCH (00:30)
[2023-04-08] MEDS ORDERED: Glucagon 1 MG/ML KIT IM PRN (05:30)
[2023-04-08] MEDS ORDERED: HumaLOG 300 UNITS/3 ML VIAL SC PRN ×2 (05:30)
[2023-04-08] MEDS ORDERED: Dextrose 50% Abboject 50 ML SYRINGE SLOW IVP PRN (05:30)
[2023-04-08] MEDS ORDERED: Dextrose 5% in Water 1,000 ML IV PRN (05:30)
[2023-04-08] MEDS: Acetaminophen 325 MG TAB PO PRN (05:34)
[2023-04-08 05:58] LABS: #Eosinphils 0.3 thou/uL (0.0-0.7); #Monocytes 0.4 thou/uL (0.11-0.59); #Neutrophils 7.4 thou/uL (1.40-6.50); %Basophils 0.2 % (0.0-1.0); %Eosinophils 3.5 % (0.0-10.0); %Lymphocytes 11.1 % (21.0-51.0); %Monocytes 4.3 % (0.0-10.0); %Neutrophils 80.7 % (42.0-75.0); Hematocrit 32.4 % (42.0-52.0); Hemoglobin 10.5 g/dL (14.0-18.0); Mean Corpuscular HGB CONC 32.4 g/dL (32.0-36.0); Mean Corpuscular Hemoglobin 30.3 pg (27.0-31.0); Mean Corpuscular Volume 93.4 fl (78.0-98.0); Mean Platelet Volume 9.3 fL (7.4-10.4); Platelet Count 147 10x3/uL (130-400); Red Blood Cell (RBC) Count 3.47 mill/uL (4.70-6.10); White Blood Cell (WBC) Count 9.2 10x3/uL (4.8-10.8)
[2023-04-08] MEDS: Morphine 2 MG/ML VIAL SLOW IVP SCH (06:08)
[2023-04-08 06:27] LABS: Anion Gap 11 mmol/L (10-20); BUN (Urea Nitrogen) 20 mg/dL (8.4-25.7); Calc. Creatinine Clearance 77 mL/min (70-130); Calcium 7.8 mg/dL (7.8-10.44); Carbon Dioxide 20 mmol/L (23-31); Chloride 112 mmol/L (98-107); Estimated GFR 65; Glucose 129 mg/dL (83-110); Potassium 4.3 mmol/L (3.5-5.1); Sodium 139 mmol/L (136-145)
[2023-04-08 06:47] LABS: Critical Call Chem Troponin I NUR.LC9 @0647; Troponin I 7.526 ng/mL (< 0.028)
[2023-04-08] MEDS: Cholecalciferol 1,000 UNITS (25 MCG) TAB PO SCH (08:31)
[2023-04-08] MEDS: Aspirin 81 mg Enteric Coated Tablet PO SCH (08:31)
[2023-04-08] MEDS: FLUoxetine HCl 10 MG CAP PO SCH (08:32)
[2023-04-08] MEDS: Montelukast Sodium 10 mg Tablet PO SCH (08:32)
[2023-04-08] MEDS: Multivit, Therapeutic 1 TAB PO SCH (08:32)
[2023-04-08] MEDS: Atorvastatin Calcium 40 MG TAB PO SCH (08:33)
[2023-04-08] MEDS: Insulin Glargine 30 UNITS/0.3 ML VIAL SC SCH (08:33)
[2023-04-08] MEDS: Furosemide 40 MG TAB PO PRN (08:41)
[2023-04-08] MEDS: Ketorolac Tromethamine 30 MG (1 mL) VIAL IVP SCH (08:41)
[2023-04-08 13:26] LABS: Critical Call Chem Troponin I NUR.SD13 @1326; Troponin I 10.495 ng/mL (< 0.028)
[2023-04-08] MEDS: Ketorolac Tromethamine 30 MG (1 mL) VIAL IVP PRN (16:16)
[2023-04-08] MEDS: Metoprolol Tartrate 25 MG TAB PO SCH (18:19)
[2023-04-08] MEDS: Colchicine 0.6 MG TAB PO SCH (18:24)
[2023-04-09] MEDS: Colchicine 0.6 MG TAB PO SCH (08:26)
[2023-04-09] MEDS: Metoprolol Tartrate 25 MG TAB PO SCH (08:26)
[2023-04-09 08:49] VITALS: BP 109/60; TEMP 98.2
[2023-04-09] MEDS: Furosemide 40 MG TAB PO SCH (10:10)
[2023-04-09] MEDS: Potassium Chloride 20 MEQ TAB PO SCH (10:10)
== END 2023-04-09 11:57 | disposition home or self-care (01) ==
LOC: SDC 05:35 → 2SW 15:12
PROVIDERS: ADMIT Internal Medicine Cardiovascular Disease; ATTEND Family Medicine
PROC: 02583ZZ Destruction of Conduction Mechanism, Percutaneous Approach (ICD-10-PCS; principal; 2023-04-09)
PROC: 4A023FZ Measurement of Cardiac Rhythm, Percutaneous Approach (ICD-10-PCS; 2023-04-09)
PROC: 4A0234Z Measurement of Cardiac Electrical Activity, Percutaneous Approach (ICD-10-PCS; 2023-04-09)
DX: I48.0 Paroxysmal atrial fibrillation (principal); I35.0 Nonrheumatic aortic (valve) stenosis; I25.2 Old myocardial infarction; I25.10 Atherosclerotic heart disease of native coronary artery without angina pectoris; I13.0 Hypertensive heart and chronic kidney disease with heart failure and stage 1 through stage 4 chronic kidney disease, or unspecified chronic kidney disease; I50.20 Unspecified systolic (congestive) heart failure; N18.9 Chronic kidney disease, unspecified; E11.22 Type 2 diabetes mellitus with diabetic chronic kidney disease; J44.1 Chronic obstructive pulmonary disease with (acute) exacerbation; G47.33 Obstructive sleep apnea (adult) (pediatric); J18.9 Pneumonia, unspecified organism; K22.89 Other specified disease of esophagus; Z79.51 Long term (current) use of inhaled steroids; Z79.4 Long term (current) use of insulin; Z79.899 Other long term (current) drug therapy; Z79.01 Long term (current) use of anticoagulants; Z91.013 Allergy to seafood; Z91.041 Radiographic dye allergy status
CPT/HCPCS: 36415; 36416; 80048; 83735; 84484; 85025; 85027; 85347; 85610; 85730; 93005; 93010; 93622; 93623; 93656; 93657; 94640; 94664; C1732; C1759; C1760; C1894; J1644; J1815; J1885; J2250; J2272; J2405; J2704; J2720; J3475; J7030; J7620; P9045